=== PATIENT | male | born 1960 | race African-American/Black ===

== ENCOUNTER 2016-11-18 12:25 | Emergency (ER) | payer MEDICARE, MEDICAID ==
[2016-11-18] MEDS ORDERED: NS 0.9% 1000 ML* 1,000 ML IV ONE (12:36)
[2016-11-18 13:01] VITALS: BP 130/75
[2016-11-18 13:01] LABS: Hematocrit 38 % (42-52); Hemoglobin 12.9 g/dl (14.0-18.0); Mean Corpuscular HGB Conc 34 g/dl (31-36); Mean Corpuscular Hemoglobin 27 pg (27-31); Mean Corpuscular Volume 79 fL (80-94); Mean Platelet Volume 9 um3 (7.4-10.4); Red Blood Count 4.85 10^6/ul (4.0-5.4); Red Cell Distribution Width 15 % (10.5-15); White Blood Count 6.6 10^3/ul (3.5-10.8)
[2016-11-18 13:17] LABS: Albumin 3.5 g/dL (3.2-5.2); BUN/Creatinine Ratio 17.3 (8-20); C Reactive Protein 4.54 mg/L (< 5.00); Calcium 9.3 mg/dL (8.6-10.3); EGFR African American 126.3 (>60); EGFR Non-African American 98.2 (>60); Globulin 3.7 g/dL (2-4); Potassium 3.7 mmol/L (3.5-5.0); Total Bilirubin 0.8 mg/dL (0.2-1.0); Total Protein 7.2 g/dL (6.4-8.9)
[2016-11-18] MEDS ORDERED: oxyCODONE/Acetamin 5/325 MG* TAB PO ONE (13:38)
--- NOTE | 2016-11-18 14:02 | RAD ---
INDICATION: Short of breath. Cough. COMPARISON: October 10, 2016 TECHNIQUE: AP seated and lateral views were obtained. FINDINGS: Bones/Soft Tissues: There are no acute bony findings. Cardiomediastinal: The cardiomediastinal silhouette is normal. Lungs: There are no infiltrates. Pleura: There are no pleural effusions. Other: None IMPRESSION: NO ACTIVE DISEASE.
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
== END 2016-11-18 14:49 | disposition home or self-care (01) ==
LOC: ED 12:25
DX: R53.1 Weakness (principal); M54.9 Dorsalgia, unspecified; G89.29 Other chronic pain; F17.290 Nicotine dependence, other tobacco product, uncomplicated; I10 Essential (primary) hypertension
CPT/HCPCS: 36415; 71020; 80053; 83605; 83880; 84484; 85025; 85730; 86140; 86703; 87040; 93005; 96360; 99282; A9270-GY

== ENCOUNTER 2017-01-22 17:42 | Emergency (ER) | payer MEDICARE, MEDICAID ==
[2017-01-22] MEDS ORDERED: NS 0.9% 1000 ML* 1,000 ML IV SCH (18:30)
[2017-01-22] MEDS ORDERED: fentaNYL* 50 MCG/ML 2 ML VIAL (100 MCG VIAL) IV SLOW PU ONE ×2 (18:47→19:22)
[2017-01-22 18:54] LABS: Hematocrit 36 % (42-52); Hemoglobin 11.7 g/dl (14.0-18.0); Mean Corpuscular HGB Conc 32 g/dl (31-36); Mean Corpuscular Hemoglobin 26 pg (27-31); Mean Corpuscular Volume 81 fL (80-94); Mean Platelet Volume 9 um3 (7.4-10.4); Red Blood Count 4.47 10^6/ul (4.0-5.4); Red Cell Distribution Width 14 % (10.5-15); White Blood Count 5.7 10^3/ul (3.5-10.8)
[2017-01-22 19:10] LABS: Albumin 3.5 g/dL (3.2-5.2); C Reactive Protein 5.97 mg/L (< 5.00); Calcium 9.1 mg/dL (8.6-10.3); EGFR African American 107.7 (>60); EGFR Non-African American 83.7 (>60); Globulin 3.8 g/dL (2-4); Magnesium 1.8 mg/dL (1.9-2.7); Total Bilirubin 0.4 mg/dL (0.2-1.0); Total Protein 7.3 g/dL (6.4-8.9)
[2017-01-22] MEDS ORDERED: Iohexol 300* (CONTRAST) 10 ML SDV IV ONE (19:15)
--- NOTE | 2017-01-22 19:55 | RAD ---
Indication: Fall, head injury. CT of the head was performed without IV contrast. Ventricular structures are midline. No midline shift is noted. The extra-axial spaces are unremarkable. There is no evidence of intracranial mass or hemorrhage. No other high or low density lesions are identified. The orbits and paranasal sinuses are otherwise unremarkable. IMPRESSION: There is no evidence of intracranial mass or hemorrhage present. No changes noted since previous exam of September 21, 2009.
--- NOTE | 2017-01-22 19:58 | RAD ---
Indication: Neck injury. CT of the cervical spine was obtained in the axial plane. Sagittal and coronal reconstructed images were obtained. The skull base demonstrates no fracture. Mastoid air cells are well aerated. The C1 ring is intact. There is spina bifida occulta of the C1 ring. The remainder of the vertebral bodies appear normal in height. No evidence of fracture is noted. The spinous processes are unremarkable. There is disc space narrowing at C3-C4, C5-C6 and C6-C7 with mild osteophyte formation at C5-C6 and C6-C7. Spinal canal appears to be intact. No fracture is identified. IMPRESSION: Degenerative disc disease at C3-C4, C5-C6 and C6-C7. No fracture of the cervical spine is noted.
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
[2017-01-22] MEDS ORDERED: LORazepam INJ* 2 MG/ML 1 ML VIAL IV PUSH ONE (20:08)
[2017-01-22] MEDS ORDERED: Morphine INJ* 4 MG/ML 1 ML SYRINGE IV ONE (20:08)
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
--- NOTE | 2017-01-22 20:19 | RAD ---
Indication: Back injury. CT of the lumbar spine was obtained in the axial plane. Sagittal and coronal reconstructed images were obtained. Postoperative changes are noted from L3 to S1. Patient is status post laminectomy with fusion of the L3-L4 and L4-L5. No compression fracture is noted. The spinous processes are unremarkable. Evaluation of the spinal canal is limited. IMPRESSION: Postoperative changes at L3-L4 and L4-L5 status post laminectomy. No fracture is noted.
--- NOTE | 2017-01-22 20:21 | RAD ---
Indication: Back injury. CT of the thoracic spine was obtained in the axial plane. Sagittal and coronal reconstructed images were obtained. The thoracic vertebra demonstrates no evidence of compression fracture. Spinal canal appears to be intact. No evidence of rib fracture is noted. Spinal canal appears to be intact. IMPRESSION: No fracture of the thoracic spine is noted.
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
[2017-01-22] MEDS ORDERED: fentaNYL PATCHs 100 MCG/HR TRANSDERM SCH (21:00)
[2017-01-22 22:37] VITALS: BP 96/66
[2017-01-23] MEDS ORDERED: fentaNYL Patch Check Q Shift 1 NOTE SCH (07:00)
== END 2017-01-22 22:35 | disposition home or self-care (01) ==
LOC: ED 17:42
DX: T14.8 Other injury of unspecified body region (principal); M54.9 Dorsalgia, unspecified; F17.210 Nicotine dependence, cigarettes, uncomplicated; W10.9XXA Fall (on) (from) unspecified stairs and steps, initial encounter; Y93.9 Activity, unspecified; Y92.89 Other specified places as the place of occurrence of the external cause
CPT/HCPCS: 36415; 70450; 70486; 71260; 72125; 72128; 72131; 74177; 80053; 82550; 82553; 83605; 83690; 83735; 84484; 85025; 85610; 85730; 86140; 96374; 99283; A9270-GY; J2060; J2270; J3010; Q9967

== ENCOUNTER 2017-02-25 13:30 | Emergency (ER) | payer MEDICARE, MEDICAID ==
[2017-02-25 13:41] VITALS: BP 129/74
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
== END 2017-02-25 14:28 | disposition left against medical advice (07) ==
LOC: ED 13:30
DX: T40.601A Poisoning by unspecified narcotics, accidental (unintentional), initial encounter (principal); F11.10 Opioid abuse, uncomplicated; M54.9 Dorsalgia, unspecified; F17.210 Nicotine dependence, cigarettes, uncomplicated; Y92.9 Unspecified place or not applicable
CPT/HCPCS: 99282

== ENCOUNTER 2017-05-04 23:22 | Emergency (ER) | payer MEDICARE, MEDICAID ==
[2017-05-05] MEDS ORDERED: Morphine INJ* 4 MG/ML 1 ML SYRINGE IV ONE (02:00)
[2017-05-05] MEDS ORDERED: NS 0.9% 1000 ML* 1,000 ML IV ONE (02:00)
[2017-05-05] MEDS ORDERED: Ondansetron INJ* 2 MG/ML VIAL IV ONE (02:00)
[2017-05-05 02:50] LABS: Hematocrit 35 % (42-52); Hemoglobin 11.3 g/dl (14.0-18.0); Mean Corpuscular HGB Conc 32 g/dl (31-36); Mean Corpuscular Hemoglobin 26 pg (27-31); Mean Corpuscular Volume 81 fL (80-94); Mean Platelet Volume 9 um3 (7.4-10.4); Red Blood Count 4.33 10^6/ul (4.0-5.4); Red Cell Distribution Width 14 % (10.5-15); White Blood Count 7.3 10^3/ul (3.5-10.8)
[2017-05-05 03:00] LABS: Albumin 3.3 g/dL (3.2-5.2); BUN/Creatinine Ratio 20.7 (8-20); C Reactive Protein 10.13 mg/L (< 5.00); Calcium 9.2 mg/dL (8.6-10.3); EGFR African American 124.5 (>60); EGFR Non-African American 96.8 (>60); Globulin 4.2 g/dL (2-4); Potassium 3.9 mmol/L (3.5-5.0); Total Bilirubin 0.4 mg/dL (0.2-1.0); Total Protein 7.5 g/dL (6.4-8.9)
[2017-05-05] MEDS ORDERED: Iohexol 300* (CONTRAST) 10 ML SDV IV ONE (04:38)
[2017-05-05 07:13] VITALS: BP 97/65
--- NOTE | 2017-05-05 07:17 | RAD ---
INDICATION: Right lower quadrant pain COMPARISON: CT chest/abdomen/pelvis January 22, 2017 TECHNIQUE: Axial source images were obtained from the hemidiaphragms to the symphysis pubis following administration of oral and intravenous contrast. 101 mL Omnipaque 300 was utilized. Coronal and sagittal reconstructed images were acquired. Lung bases: Mild gravity dependent atelectasis and interstitial prominence. Suggest follow-up chest x-ray if clinically indicated. Liver: The liver is enlarged with findings of hepatic steatosis. There are no masses. There is no ductal dilatation. There is periportal edema. Gallbladder: The gallbladder is contracted. The wall is thickened. There is pericholecystic fluid. There are no calcified gallstones Spleen: The spleen is mildly generous in size. There are no focal masses Pancreas: Limited evaluation. No gross abnormalities. Adrenal glands: There is no evidence of adrenal mass. Kidneys: The kidneys are normal in size and position. There are prompt nephrograms and there is prompt excretion bilaterally. There is a 2.2 cm left renal cyst. There is no evidence of nephrolithiasis. Adenopathy: There is no evidence of adenopathy by size criteria. Evaluation for adenopathy, her, is limited due to a paucity of fat planes and mesenteric edema Fluid collections: Diffuse mesenteric edema. Vessels:There are no significant atherosclerotic changes involving the aorta. There is no focal aneurysm. The iliac vessels are normal in caliber. The IVC appears normal. GI tract: There are no acute CT bowel findings. There is no obstruction. The stomach and small bowel appear normal. The lower GI tract is remarkable for moderate retained stool. Pelvic organs: The prostate and seminal vesicles appear normal Bladder: There are no bladder masses. Abdominal and pelvic soft tissues: Mild diffuse obtaining is edema. Osseous structures: Posterior lumbar fusion L3-L5 with decompression. No acute bony change Other: None IMPRESSION: 1. Hepatic steatosis. Hepatomegaly. Periportal edema. Suggest relation with liver enzymes. 2. Pericholecystic fluid with contracted gallbladder. 3. Mild splenomegaly. 4. Mild diffuse mesenteric and subcutaneous edema 5. Moderate retained stool 6. Postoperative lumbar fusion.
[2017-05-05 08:55] LABS: Urine Bilirubin Negative (Negative); Urine Glucose Negative (Negative); Urine Nitrite Negative (Negative)
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
== END 2017-05-05 09:14 | disposition home or self-care (01) ==
LOC: ED 23:22
DX: R10.31 Right lower quadrant pain (principal); R39.198 Other difficulties with micturition; K82.0 Obstruction of gallbladder; R16.1 Splenomegaly, not elsewhere classified; K59.00 Constipation, unspecified; I10 Essential (primary) hypertension; F17.210 Nicotine dependence, cigarettes, uncomplicated
CPT/HCPCS: 36415; 74177; 80053; 81003; 83690; 85025; 86140; 96361; 96374; 96375; 99282; J2270; J2405; Q9967

== ENCOUNTER 2017-05-05 18:00 | Emergency (ER) | payer MEDICARE, MEDICAID ==
[2017-05-05] MEDS ORDERED: Naproxen TAB* 250 MG PO ONE (21:08)
[2017-05-05] MEDS ORDERED: Ciprofloxacin TAB* 500 MG PO ONE (21:08)
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
[2017-05-05 21:42] VITALS: BP 116/62
== END 2017-05-05 21:42 | disposition home or self-care (01) ==
LOC: ED 18:00
DX: R10.31 Right lower quadrant pain (principal); N41.9 Inflammatory disease of prostate, unspecified; M54.5 Low back pain; R30.0 Dysuria; R50.9 Fever, unspecified; K59.00 Constipation, unspecified; I10 Essential (primary) hypertension; F31.9 Bipolar disorder, unspecified; F17.210 Nicotine dependence, cigarettes, uncomplicated
CPT/HCPCS: 99282; A9270-GY

== ENCOUNTER 2017-10-06 01:17 | Emergency (ER) | payer MEDICARE, MEDICAID ==
[2017-10-06] MEDS ORDERED: NS 0.9% 1000 ML* 1,000 ML IV ONE (04:44)
[2017-10-06] MEDS ORDERED: Ondansetron INJ* 2 MG/ML VIAL IV ONE (04:45)
[2017-10-06 05:55] LABS: Hematocrit 35 % (42-52); Hemoglobin 11.8 g/dl (14.0-18.0); Mean Corpuscular HGB Conc 34 g/dl (31-36); Mean Corpuscular Hemoglobin 27 pg (27-31); Mean Corpuscular Volume 78 fL (80-94); Mean Platelet Volume 9 um3 (7.4-10.4); Red Blood Count 4.46 10^6/ul (4.0-5.4); Red Cell Distribution Width 14 % (10.5-15); White Blood Count 18.6 10^3/ul (3.5-10.8)
[2017-10-06 05:56] LABS: Add Diff/Slide Review? Slide Review Added; Comments Flag Yes
[2017-10-06 06:11] LABS: Albumin 3.9 g/dL (3.2-5.2); BUN/Creatinine Ratio 26.1 (8-20); EGFR African American 114.4 (>60); EGFR Non-African American 88.9 (>60); Globulin 4.6 g/dL (2-4); Potassium 4.4 mmol/L (3.5-5.0); Total Bilirubin 0.8 mg/dL (0.2-1.0); Total Protein 8.5 g/dL (6.4-8.9)
[2017-10-06] MEDS ORDERED: cefTRIAXone(*) 1 GM in NS 0.9% 50 ML* 50 ML IVPB ONE (06:21)
[2017-10-06 06:54] VITALS: BP 127/61
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
== END 2017-10-06 06:58 | disposition home or self-care (01) ==
LOC: ED 01:17
DX: L03.90 Cellulitis, unspecified (principal); R50.9 Fever, unspecified; H53.8 Other visual disturbances; R51 Headache; F41.9 Anxiety disorder, unspecified; F17.210 Nicotine dependence, cigarettes, uncomplicated
CPT/HCPCS: 36415; 80053; 83605; 85025; 87040; 96374; 96375; 99283; J0696; J2405

== ENCOUNTER 2018-11-06 23:49 | Emergency (ER) | payer MEDICARE ==
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
[2018-11-07 03:06] VITALS: BP 126/59
== END 2018-11-07 03:05 | disposition home or self-care (01) ==
LOC: ED 23:49
DX: M17.11 Unilateral primary osteoarthritis, right knee (principal); Z87.891 Personal history of nicotine dependence
CPT/HCPCS: 99281

== ENCOUNTER 2018-11-13 23:18 | Emergency (ER) | payer MEDICARE, MEDICAID ==
[2018-11-14] MEDS ORDERED: Sulfamethox/Trimethoprim DS 800/160* TAB PO ONE (00:49)
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
[2018-11-14 03:32] VITALS: BP 143/79
== END 2018-11-14 01:10 | disposition home or self-care (01) ==
LOC: ED 23:18
DX: L02.414 Cutaneous abscess of left upper limb (principal); Z86.14 Personal history of Methicillin resistant Staphylococcus aureus infection; Z87.891 Personal history of nicotine dependence
CPT/HCPCS: 10060; 87070; 87205; 99282; A9270-GY

== ENCOUNTER 2019-04-13 21:53 | Emergency (ER) | payer MEDICARE, MEDICAID ==
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
[2019-04-14 00:15] VITALS: BP 126/81
== END 2019-04-14 00:14 | disposition home or self-care (01) ==
LOC: ED 21:53
DX: K40.90 Unilateral inguinal hernia, without obstruction or gangrene, not specified as recurrent (principal); Z87.891 Personal history of nicotine dependence
CPT/HCPCS: 99282

== ENCOUNTER 2019-05-12 23:54 | Emergency (ER) | payer MEDICARE, MEDICAID ==
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
[2019-05-13] MEDS ORDERED: NS 0.9% 1000 ML** 1,000 ML IV ONE (00:09)
[2019-05-13 00:28] LABS: ABS Basophils 0.1 10^3/ul (0-0.2); ABS Eosinophils 0.2 10^3/ul (0-0.6); ABS Neutrophils 3.5 10^3/ul (1.5-7.7); Eosinophil % 2.5 %; Hematocrit 36 % (42-52); Hemoglobin 11.9 g/dL (14.0-18.0); Lymphocyte % 30.2 %; Mean Corpuscular HGB Conc 33 g/dL (31-36); Mean Corpuscular Hemoglobin 26 pg (27-31); Mean Corpuscular Volume 78 fL (80-94); Platelet Count 131 10^3/uL (150-450); Red Blood Count 4.63 10^6 /uL (4.18-5.48); Red Cell Distribution Width 15 % (10-15); White Blood Count 6.7 10^3/uL (3.5-10.8)
[2019-05-13 00:45] LABS: ALT 20 U/L (7-52); AST 32 U/L (13-39); Albumin 3.6 g/dL (3.2-5.2); Albumin/Globulin Ratio 0.9 (1-3); Alkaline Phosphatase 98 U/L (34-104); Anion Gap 5 mmol/L (2-11); BUN/Creatinine Ratio 15.9 (8-20); Blood Urea Nitrogen 14 mg/dL (6-24); CO2 Carbon Dioxide 29 mmol/L (22-32); Calcium 9.2 mg/dL (8.6-10.3); Chloride 106 mmol/L (101-111); EGFR African American 107.3 (>60); EGFR Non-African American 88.6 (>60); Globulin 3.8 g/dL (2-4); Glucose 131 mg/dL (70-100); Potassium 3.6 mmol/L (3.5-5.0); Sodium 140 mmol/L (135-145); Total Protein 7.4 g/dL (6.4-8.9)
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
[2019-05-13 01:14] LABS: Alcohol < 10 mg/dL (<10)
[2019-05-13] MEDS ORDERED: Iohexol 300* (CONTRAST) 10 ML SDV IV ONE (02:21)
[2019-05-13] MEDS ORDERED: Ibuprofen TAB* 400 MG PO ONE (02:24)
[2019-05-13 04:02] VITALS: BP 118/69
== END 2019-05-13 04:47 | disposition home or self-care (01) ==
LOC: ED 23:54
DX: R10.31 Right lower quadrant pain (principal); I10 Essential (primary) hypertension; Z87.891 Personal history of nicotine dependence; Z79.891 Long term (current) use of opiate analgesic
CPT/HCPCS: 36415; 74177; 80053; 80320; 83605; 83690; 85025; 96360; 99283; A9270-GY; G0480

== ENCOUNTER 2019-06-02 10:22 | Emergency (ER) | payer MEDICARE, MEDICAID ==
[2019-06-02] MEDS ORDERED: Ondansetron INJ* 2 MG/ML VIAL IV ONE (10:54)
[2019-06-02] MEDS ORDERED: Loperamide CAP* 2 MG PO ONE (10:54)
[2019-06-02] MEDS ORDERED: NS 0.9% 1000 ML** 1,000 ML IV ONE (10:54)
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
[2019-06-02] MEDS ORDERED: Ketorolac INJ* 30 MG/ML 1 ML VIAL IV ONE (10:58)
[2019-06-02] MEDS ORDERED: Lidocaine PATCH 5%* 1 PATCH TRANSDERM ONE (12:45)
[2019-06-02 14:03] VITALS: BP 113/80
[2019-06-02] MEDS ORDERED: Lidocaine Patch REMOVE* 1 NOTE MISC SCH (21:00)
== END 2019-06-02 14:02 | disposition home or self-care (01) ==
LOC: ED 10:22
DX: F11.90 Opioid use, unspecified, uncomplicated (principal); R11.2 Nausea with vomiting, unspecified; R19.7 Diarrhea, unspecified; R10.9 Unspecified abdominal pain; G89.29 Other chronic pain; M54.5 Low back pain; I10 Essential (primary) hypertension; Z87.891 Personal history of nicotine dependence
CPT/HCPCS: 96361; 96374; 96375; 99283; A9270-GY; J1885; J2405

== ENCOUNTER 2019-06-04 20:01 | Emergency (ER) | payer MEDICARE, MEDICAID ==
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
[2019-06-04 21:11] LABS: ABS Basophils 0.1 10^3/ul (0-0.2); ABS Eosinophils 0.2 10^3/ul (0-0.6); ABS Lymphocytes 2.2 10^3/ul (1.0-4.8); ABS Monocytes 1.1 10^3/ul (0-0.8); ABS Neutrophils 6.9 10^3/ul (1.5-7.7); Eosinophil % 1.7 %; Hematocrit 33 % (42-52); Hemoglobin 11.2 g/dL (14.0-18.0); Lymphocyte % 20.9 %; Mean Corpuscular HGB Conc 34 g/dL (31-36); Mean Corpuscular Hemoglobin 27 pg (27-31); Mean Corpuscular Volume 77 fL (80-94); Mean Platelet Volume 8.6 fL (7.4-10.4); Nucleated Red Blood Cells % 0.1; Platelet Count 159 10^3/uL (150-450); Red Blood Count 4.22 10^6 /uL (4.18-5.48); Red Cell Distribution Width 14 % (10-15); White Blood Count 10.4 10^3/uL (3.5-10.8)
[2019-06-04 21:20] LABS: INR 1.29 (0.82-1.09)
[2019-06-04 21:32] LABS: BUN/Creatinine Ratio 18.1 (8-20); Potassium 4.3 mmol/L (3.5-5.0)
[2019-06-04 21:33] LABS: Albumin 3.4 g/dL (3.2-5.2); Albumin/Globulin Ratio 0.8 (1-3); C Reactive Protein 8.08 mg/L (<8.01); EGFR African American 135.2 (>60); EGFR Non-African American 111.7 (>60); Globulin 4.1 g/dL (2-4); Total Bilirubin 0.7 mg/dL (0.2-1.0); Total Protein 7.5 g/dL (6.4-8.9)
[2019-06-04] MEDS ORDERED: Sulfamethox/Trimethoprim DS 800/160* TAB PO ONE (21:45)
[2019-06-04 22:40] VITALS: BP 114/59
== END 2019-06-04 22:47 | disposition left against medical advice (07) ==
LOC: ED 20:01
DX: L02.414 Cutaneous abscess of left upper limb (principal); Z79.899 Other long term (current) drug therapy; I10 Essential (primary) hypertension; F31.9 Bipolar disorder, unspecified; F41.9 Anxiety disorder, unspecified; Z87.891 Personal history of nicotine dependence
CPT/HCPCS: 10060; 36415; 80053; 85025; 85610; 86140; 87070; 87077; 87186; 87205; 87640; 87641; 99282; A9270-GY

== ENCOUNTER 2019-06-09 03:18 | Emergency (ER) | payer MEDICARE, MEDICAID ==
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
[2019-06-09 05:10] LABS: Urine Appearance Clear; Urine Bilirubin Negative (Negative); Urine Blood Negative (Negative); Urine Color Yellow; Urine Glucose Negative (Negative); Urine Ketones Negative (Negative); Urine Nitrite Negative (Negative); Urine Protein Negative (Negative); Urine Specific Gravity 1.021 (1.010-1.030); Urine Urobilinogen Positive (Negative)
[2019-06-09 05:40] VITALS: BP 115/64
== END 2019-06-09 05:39 | disposition home or self-care (01) ==
LOC: ED 03:18
DX: K40.90 Unilateral inguinal hernia, without obstruction or gangrene, not specified as recurrent (principal); I10 Essential (primary) hypertension; F41.9 Anxiety disorder, unspecified; F32.9 Major depressive disorder, single episode, unspecified; Z87.891 Personal history of nicotine dependence
CPT/HCPCS: 81003; 99282

== ENCOUNTER 2019-12-25 15:58 | Emergency (ER) | payer MEDICARE, MEDICAID ==
[2019-12-25] MEDS ORDERED: NS 0.9% 1000 ML** 1,000 ML IV ONE ×2 (16:10→16:40)
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
[2019-12-25] MEDS ORDERED: Ketorolac INJ* 30 MG/ML 1 ML VIAL IV PUSH ONE (16:20)
[2019-12-25] MEDS ORDERED: Acetaminophen TAB* 325 MG PO ONE (16:20)
[2019-12-25] MEDS ORDERED: cefTRIAXone(*) 1 GM in NS 0.9% 50 ML* 50 ML IVPB ONE (16:39)
[2019-12-25] MEDS ORDERED: Azithromycin 500 mg/250 ml NS 500 MG/250 ML BAG IVPB ONE (16:39)
[2019-12-25 16:42] LABS: ABS Basophils 0.1 10^3/ul (0-0.2); ABS Lymphocytes 1.1 10^3/ul (1.0-4.8); ABS Monocytes 0.9 10^3/ul (0-0.8); ABS Neutrophils 3.4 10^3/ul (1.5-7.7); Eosinophil % 0.1 %; Hematocrit 37 % (42-52); Hemoglobin 12.4 g/dL (14.0-18.0); Lymphocyte % 20.7 %; Mean Corpuscular HGB Conc 34 g/dL (31-36); Mean Corpuscular Hemoglobin 26 pg (27-31); Mean Corpuscular Volume 77 fL (80-94); Mean Platelet Volume 8.8 fL (7.4-10.4); Nucleated Red Blood Cells % 0.2; Platelet Count 123 10^3/uL (150-450); Red Blood Count 4.77 10^6 /uL (4.18-5.48); Red Cell Distribution Width 14 % (10-15); White Blood Count 5.5 10^3/uL (3.5-10.8)
[2019-12-25 16:44] LABS: Influenza A Molecular POSITIVE (Negative)
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
--- OUTSIDE RECORDS SUMMARY | 2019-12-25 16:45 | XMS REPORT | Summary of Care ---
:1960 Author Organization [facility] Address [address] [address] Care Team Providers Name Role Phone Nazanin Cui Primary Care Provider Reason for Visit Reason Comments Check Up lower back pain and swollen extremities Encounter Details Date Type Department Care Team Description 12/21/2019 Office Visit [place] [facility] Pain management contract agreement (Primary Dx); Practice [facility] Chronic pain disorder [address] [place] [address] [place] [address] [phone] Allergies No Known Allergiesdocumented as of this encounter (statuses as of 12/21/2019) Medications Medication Sig Dispensed Refills Start Date End Date Status Tamsulosin HCl TAKE 1 90 Cap 1 02/09/2019 Active (FLOMAX) 0.4 MG CAPSULE BY Oral MOUTH EVERY CapIndications: DAY Urinary obstruction gabapentin Take 1 Cap by 60 Cap 3 11/16/2019 Active (NEURONTIN) 400 mouth THREE MG Oral TIMES DAILY. CapIndications: Chronic pain disorder oxyCODONE Take 1 Tab by 4 Tab 0 12/21/2019 Active (OXY-IR,OXY-FAST) mouth EVERY 10 MG Oral SIX HOURS TabIndications: NEEDED (back Chronic pain pain). Max disorder Daily Amount: 20 mg. Oxycodone HCl 10 Take 1 Tab by 60 Tab 0 11/16/2019 Discontinued MG Oral mouth EVERY 0 (Reorder) TabIndications: SIX HOURS Chronic pain NEEDED (back disorder pain). Max Daily Amount: 20 mg. documented as of this encounter (statuses as of 12/21/2019) Active Problems Problem Noted Date Cervicalgia 07/30/2019 [...] as of this encounter (statuses as of 12/21/2019) Social History Tobacco Use Types Packs/Day Years [...] Sign Reading Time Taken Comments Blood Pressure 140/78 12/21/2019 10:45 AM EST Pulse 69 12/21/2019 10:45 AM EST Temperature 37.7 12/21/2019 10:45 AM EST C (99.9 F) Respiratory Rate - - Oxygen Saturation 99% 12/21/2019 10:45 AM EST Inhaled Oxygen Concentration - - Weight 77.6 kg (171 lb) 12/21/2019 10:45 AM EST Height 182.9 cm (6') 12/21/2019 10:45 AM EST Body Mass Index 23.19 12/21/2019 10:45 AM EST documented in this encounter Patient Instructions Patient InstructionsLizzie Carranza NP - 12/21/2019 10:40 AM SHANTHI have sent in enough oxycodone for today and tomorrow. For further refills you must keep your appointment with Dr. Cui tomorrow at 4pm. documented in this encounter Progress Notes Lizzie Carranza NP - 12/21/2019 10:40 AM EST PATIENT: Chris Ramirez : 1960 DATE OF SERVICE: 12/21/2019 CHIEF COMPLAINT: Chief Complaint Patient presents with ? Check Up lower back pain and swollen extremities Subjective HISTORY OF PRESENT ILLNESS: Chris Ramirez is a 59-y.o. male. HPI He missed appointment with Dr. Cui on 12/09/19. Would like refill of his oxycodone for chronic lowback pain. He normally gets 60 tablets and take 2 tablets daily. He has had 4 surgeries on his back and getting another surgery next month. He sees Dr. Trino Pete neurosurgery/orthopedics. He told him that 2 screws in bridge came loose since last surgery. Left side chronically numb. No bowel or bladder incontinence. Past Medical History: Diagnosis Date ? Bipolar affect, depressed (HCC) ? Clinical depression ? Schizo-affective schizophrenia (HCC) Family History Problem Relation Age of Onset [...] Sister ? Depression/Depressed Brother ? Diabetes Brother Current Outpatient Medications Medication Sig ? gabapentin [...] No current facility-administered medications for this visit. No Known Allergies Social History Socioeconomic History ? Marital status: Spouse name: Not on file ? Number of children: Not on file ? Years of education: Not on file ? Highest education level: Not on file Occupational History ? Not on file Social Needs ? Financial resource strain: Not on file ? Food insecurity Worry: Not on file Inability: Not on file ? Transportation needs Medical: Not on file Non-medical: Not on file Tobacco Use ? Smoking status: Current Every Day Smoker Types: Cigarettes ? Smokeless tobacco: Never Used ? Tobacco comment: 2 cigs per day Substance and Sexual Activity ? Alcohol use: Never Frequency: Never ? Drug use: Yes Types: Prescription ? Sexual activity: Yes Partners: Female Lifestyle ? Physical activity Days per week: Not on file Minutes per session: Not on file ? Stress: Not on file Relationships ? Social connections Talks on phone: Not on file Gets together: Not on file Attends zoroastrian service: Not on file Active member of club or organization: Not on file Attends meetings of clubs or organizations: Not on file Relationship status: Not on file ? Intimate partner violence Fear of current or ex partner: Not on file Emotionally abused: Not on file Physically abused: Not on file Forced sexual activity: Not on file Other Topics Concern ? Not on file Social History Narrative ? Not on file REVIEW OF SYSTEMS: Review of Systems Gastrointestinal: Negative for constipation and diarrhea. Genitourinary: Negative for dysuria, frequency and urgency. Musculoskeletal: Positive for back pain. Neurological: Positive for tingling and sensory change. Negative for weakness. Objective PHYSICAL EXAM: VITALS: BP 140/78 (BP Location: Right arm, Patient Position: Sitting) | Pulse 69 | Temp 99.9 F (37.7 C) (Tympanic) | Ht 6' (1.829 m) | Wt 171 lb ( 77.6 kg) | SpO2 99% | BMI 23.19 kg/m Body mass index is 23.19 kg/m. Physical Exam Vitals signs and nursing note reviewed. Constitutional: General: He is not in acute distress. Appearance: Normal appearance. He is well-developed. Cardiovascular: Rate and Rhythm: Normal rate and regular rhythm. Heart sounds: Normal heart sounds. No murmur. No friction rub. No gallop. Pulmonary: Effort: Pulmonary effort is normal. No respiratory distress. Breath sounds: Normal breath sounds. Neurological: Mental Status: He is alert. Psychiatric: Mood and Affect: Mood and affect normal. Speech: Speech normal. Behavior: Behavior normal. Behavior is cooperative. ASSESSMENT / IMPRESSION: ICD-9-CM ICD-10-CM 1. Pain management contract agreement V68.89 Z02.89 2. Chronic pain disorder 338.4 G89.4 oxyCODONE (OXY-IR,OXY-FAST) 10 MG Oral Tab Plan 1. Chronic pain disorder -scheduled with Dr. Cui tomorrow at 4 pm - I will give him enough to last until then but will need to keep this appointment to get further refills. - oxyCODONE (OXY-IR,OXY-FAST) 10 MG Oral Tab; Take 1 Tab by mouth EVERY SIX HOURS NEEDED (back pain). Max Daily Amount: 20 mg. Dispense: 4 Tab; Refill: 0 2. Pain management contract agreement -In place, and can be found in scanning. Author: Lizzie Carranza NP 12/21/2019 12:14 documented in this encounter Plan of Treatment Date Type Specialty Care Team Description 12/22/2019 Office Visit Internal Medicine Nazanin Cui MD [address] [place] [address] [phone] 01/15/2020 Office Visit Internal Medicine Nazanin Cui MD [address] [place] [address] [phone] Health Maintenance Due Date Last Done Comments MEDICARE ANNUAL WELLNESS 1960 VISIT LIPID DISORDER SCREENING 1977 HEPATITIS C SCREENING 1999 Colonoscopy 2009 DTaP/Tdap/Td Vaccines (1 - 01/13/2020 Postponed from 1970 Tdap) (Other) INFLUENZA VACCINE (#1) 2020 Postponed from 07/05/2019 (Other) DEPRESSION SCREENING 09/18/2020 09/18/2019, 09/18/2019 HIV SCREENING 09/18/2020 Postponed from 1974 (Patient refused) PNEUMOCOCCAL 0-64 YRS (1 of 1 09/18/2020 Postponed from 1965 - PPSV23) (Patient refused) ZOSTER IMMUNIZATION SERIES (1 09/18/2020 Postponed from 2009 of 2) (Vaccine not available) HEPATITIS A IMMUNIZATION Aged Out No longer [...] Type Problems Progress Depression Depression 9 (09/18/2019 venecia Self (PHQ-9) 1:32 PM EST) MD Nazanin total [...] Diagnosis Chronic pain disorder Chronic pain syndrome Pain management contract agreement Reserved for inherently not codable concepts WITHOUT codable children documented in this encounter documented as of this encounter
[2019-12-25 16:55] LABS: Albumin 3.7 g/dL (3.2-5.2); Albumin/Globulin Ratio 0.9 (1-3); Calcium 8.9 mg/dL (8.6-10.3); EGFR African American 114.4 (>60); EGFR Non-African American 94.5 (>60); Globulin 4.2 g/dL (2-4); Total Bilirubin 0.6 mg/dL (0.2-1.0); Total Protein 7.9 g/dL (6.4-8.9)
[2019-12-25 18:02] LABS: Urine Appearance Clear; Urine Bilirubin Negative (Negative); Urine Blood Negative (Negative); Urine Color Yellow; Urine Glucose Negative (Negative); Urine Ketones Negative (Negative); Urine Nitrite Negative (Negative); Urine Protein Negative (Negative); Urine Specific Gravity 1.016 (1.010-1.030); Urine Urobilinogen Positive (Negative)
[2019-12-25 18:54] VITALS: BP 129/80
--- NOTE | 2019-12-26 10:31 | ED ---
Imaging and Labs Follow Up Follow Up Type: Labs/Cultures Labs/Culture Result: Positive blood cultures reveals gram positive bacilli, non-anthracis Patient Communication/Plan: Patient was called multiple times as well as patient's sister, next of kin which is listed as secondary phone number Patient's line was busy and sisters line, unable to complete the call as patient has calling restrictions Patient Communication/Plan: While this could be a contaminant, patient was called back multiple times with no answer, so letter was sent Provider Diagnoses: Pneumonia, Influenza A
== END 2019-12-25 19:31 | disposition home or self-care (01) ==
LOC: ED 15:58
DX: J09.X2 Influenza due to identified novel influenza A virus with other respiratory manifestations (principal); J18.9 Pneumonia, unspecified organism; I10 Essential (primary) hypertension; F41.9 Anxiety disorder, unspecified; F31.9 Bipolar disorder, unspecified; Z87.891 Personal history of nicotine dependence; Z79.899 Other long term (current) drug therapy
CPT/HCPCS: 36415; 71046; 80053; 81003; 83605; 85025; 87040; 87205; 96365; 96375; 99283; A9270-GY; J0456; J0696; J1885

== ENCOUNTER 2020-08-13 20:38 | Inpatient (IN) ==
[2020-08-13] MEDS ORDERED: NS 0.9% 1000 ml BAG 1,000 ML IV.FLUID IV ONE (21:25)
[2020-08-13] MEDS ORDERED: Piperacillin/Tazobac ADVAN 3.375 GM in NS 0.9% 100 ml BAG 100 ML IVPB ONE (21:25)
[2020-08-13] MEDS ORDERED: Ondansetron 4 mg VIAL 2 MG/ML 2 ml VIAL IV ONE (21:27)
[2020-08-13 21:48] LABS: ABS Basophils 0.1 10^3/ul (0-0.2); ABS Lymphocytes 0.9 10^3/ul (1.0-4.8); ABS Monocytes 0.8 10^3/ul (0-0.8); ABS Neutrophils 11.3 10^3/ul (1.5-7.7); Eosinophil % 0.4 %; Hematocrit 39 % (42-52); Lymphocyte % 6.7 %; Mean Corpuscular HGB Conc 33 g/dL (31-36); Mean Corpuscular Hemoglobin 26 pg (27-31); Mean Corpuscular Volume 79 fL (80-94); Mean Platelet Volume 9.3 fL (7.4-10.4); Platelet Count 179 10^3/uL (150-450); Red Blood Count 4.95 10^6 /uL (4.18-5.48); Red Cell Distribution Width 13 % (10-15); White Blood Count 13.2 10^3/uL (3.5-10.8)
[2020-08-13 21:56] LABS: Activated Partial Thrombo Time 31.9 seconds (26.0-38.0); INR 1.39 (0.82-1.09)
[2020-08-13] MEDS ORDERED: Vancomycin 1,500 MG in NS 0.9% 250 ml 250 ML IVPB SCH (22:00)
[2020-08-13 22:05] LABS: ALT 21 U/L (7-52); AST 28 U/L (13-39); Albumin 3.6 g/dL (3.2-5.2); Albumin/Globulin Ratio 0.7 (1-3); Alkaline Phosphatase 94 U/L (34-104); Anion Gap 7 mmol/L (2-11); BUN/Creatinine Ratio 12.9 (8-20); Blood Urea Nitrogen 11 mg/dL (6-24); C Reactive Protein 3.61 mg/L (<8.01); CO2 Carbon Dioxide 28 mmol/L (22-32); Calcium 9.4 mg/dL (8.6-10.3); Chloride 98 mmol/L (101-111); EGFR African American 110.9 (>60); EGFR Non-African American 91.6 (>60); Globulin 5.1 g/dL (2-4); Glucose 144 mg/dL (70-100); Sodium 133 mmol/L (135-145); Total Protein 8.7 g/dL (6.4-8.9)
[2020-08-13] MEDS ORDERED: Iohexol 300 (CONTRAST) 10 ML SDV IV ONE (22:08)
[2020-08-13 22:30] LABS: Troponin I 0.03 ng/mL (<0.03)
[2020-08-13 22:55] LABS: Erythrocyte Sed Rate 35 mm/Hr (0-19)
[2020-08-14] MEDS ORDERED: Ondansetron 4 mg VIAL 2 MG/ML 2 ml VIAL IV PRN (00:33)
[2020-08-14] MEDS ORDERED: NS 0.9% 1000 ml BAG 1,000 ML IV SCH (00:45)
[2020-08-14] MEDS ORDERED: Vancomycin per Pharmacy 1 EA NOTE FOLLOW UP SCH (01:00)
[2020-08-14 02:02] LABS: Total Iron Binding Capacity 336 mcg/dL (250-450); Transferrin 240 mg/dL (203-362)
[2020-08-14 02:04] LABS: Troponin I 0.03 ng/mL (<0.03)
[2020-08-14 02:25] LABS: Ferritin 111.6 ng/mL (24-336)
[2020-08-14 02:28] LABS: Folate 14.02 ng/mL (>3.99)
[2020-08-14 02:29] LABS: Vitamin B12 485 pg/mL (180-914)
[2020-08-14] MEDS ORDERED: fentaNYL PATCH 25 MCG/HR 1 PATCH TRANSDERM SCH (02:30)
[2020-08-14 02:31] LABS: % Iron Saturation 6 % (15-55); Iron < 20 ug/dL (50-212); Unsaturated Iron Binding < 321 ug/dL
[2020-08-14 02:38] LABS: HIV 4th Generation Nonreactive (Nonreactive)
[2020-08-14] MEDS: metroNIDAZOLE IV 500 MG/100ML 500 MG/100 ML BAG IVPB SCH ×3 (03:12→23:14)
[2020-08-14] MEDS: Cefepime 2 GM in Dextrose 2 GM/50 ML BAG IV SCH ×2 (05:20→21:33)
[2020-08-14] MEDS: Vancomycin 1,250 MG in NS 0.9% 250 ml 250 ML IVPB SCH ×2 (06:00→14:13)
[2020-08-14] MEDS: Heparin 5000 UNITS/ML 1 mL VIAL SUBCUT SCH ×2 (06:03→14:18)
[2020-08-14] MEDS: fentaNYL Patch Check Q Shift NOTE FOLLOW UP SCH ×2 (06:58→19:31)
[2020-08-14 08:11] LABS: Urine Appearance Cloudy; Urine Bilirubin Negative (Negative); Urine Blood Negative (Negative); Urine Color Amber; Urine Glucose Negative (Negative); Urine Ketones Negative (Negative); Urine Nitrite Negative (Negative); Urine Protein Negative (Negative); Urine Specific Gravity 1.041 (1.010-1.030); Urine Urobilinogen Positive (Negative)
[2020-08-14 08:18] LABS: Urine Bacteria Absent (Absent); Urine Red Blood Cell 3+(>10/hpf) (Absent); Urine White Blood Cell 3+(>20/hpf) (Absent)
[2020-08-14] MEDS: Iron Sucrose 200 MG in NS 0.9% 100 ml BAG 100 ML IVPB SCH (09:03)
[2020-08-14 10:07] LABS: Hepatitis C Antibody Reactive (Negative)
[2020-08-14] MEDS ORDERED: Enoxaparin 40 MG/0.4 ML SYR SUBCUT SCH (21:00)
[2020-08-15] MEDS: Vancomycin 1,250 MG in NS 0.9% 250 ml 250 ML IVPB SCH ×3 (00:37→11:20)
[2020-08-15] MEDS ORDERED: Vancomycin Trough Check NOTE FOLLOW UP ONE (05:30)
[2020-08-15] MEDS: fentaNYL Patch Check Q Shift NOTE FOLLOW UP SCH (07:08)
[2020-08-15] MEDS: metroNIDAZOLE IV 500 MG/100ML 500 MG/100 ML BAG IVPB SCH ×2 (07:09→15:04)
[2020-08-15] MEDS: Iron Sucrose 200 MG in NS 0.9% 100 ml BAG 100 ML IVPB SCH (08:56)
[2020-08-15] MEDS ORDERED: Vancomycin 1,250 MG in NS 0.9% 250 ml 250 ML IVPB SCH (09:00)
[2020-08-15] MEDS ORDERED: Cefepime 2 GM in Dextrose 2 GM/50 ML BAG IV SCH (10:00)
[2020-08-15 10:28] LABS: ALT 17 U/L (7-52); Albumin 3.3 g/dL (3.2-5.2); Albumin/Globulin Ratio 0.8 (1-3); Alkaline Phosphatase 73 U/L (34-104); BUN/Creatinine Ratio 9.7 (8-20); Blood Urea Nitrogen 7 mg/dL (6-24); CO2 Carbon Dioxide 25 mmol/L (22-32); Calcium 8.8 mg/dL (8.6-10.3); Chloride 102 mmol/L (101-111); EGFR African American 134.3 (>60); Globulin 4.4 g/dL (2-4); Glucose 177 mg/dL (70-100); Sodium 131 mmol/L (135-145); Total Protein 7.7 g/dL (6.4-8.9)
[2020-08-15 11:26] VITALS: BP 162/73
[2020-08-15] MEDS ORDERED: fentaNYL PATCH 25 MCG/HR 1 PATCH TRANSDERM SCH (12:00)
[2020-08-15 12:04] LABS: Anion Gap 4 mmol/L (2-11)
[2020-08-17] MEDS ORDERED: Vancomycin Trough Check NOTE FOLLOW UP ONE (11:00)
== END 2020-08-15 16:10 | disposition left against medical advice (07) | DRG 872 ==
LOC: ED 20:38 → MED 23:34
PROVIDERS: ADMIT Internal Medicine Interventional Cardiology; ATTEND Internal Medicine

== ENCOUNTER 2020-09-11 20:01 | Inpatient (IN) ==
[2020-09-11] MEDS ORDERED: NS 0.9% 1000 ml BAG 1,000 ML IV ONE (20:18)
[2020-09-11] MEDS ORDERED: Naloxone 4 mg VIAL 0.4 MG/ML 10 ml VIAL (4 mg) ONE (20:32)
[2020-09-11] MEDS ORDERED: Naloxone Nasal Spray 4 MG/0.1 ML NASAL.SPR INTRANASAL PRN (20:35)
[2020-09-11] MEDS ORDERED: Naloxone Nasal Spray 4 MG/0.1 ML NASAL.SPR INTRANASAL ONE (20:35)
[2020-09-11] MEDS ORDERED: Naloxone 0.4 mg VIAL 0.4 mg/ml 1 ml VIAL IV PUSH ONE ×2 (20:37→21:48)
[2020-09-11 20:47] LABS: ABS Lymphocytes 0.6 10^3/ul (1.0-4.8); ABS Monocytes 0.1 10^3/ul (0-0.8); ABS Neutrophils 7.4 10^3/ul (1.5-7.7); Eosinophil % 0.5 %; Hematocrit 42 % (42-52); Hemoglobin 14.5 g/dL (14.0-18.0); Lymphocyte % 7.1 %; Mean Corpuscular HGB Conc 35 g/dL (31-36); Mean Corpuscular Hemoglobin 27 pg (27-31); Mean Corpuscular Volume 79 fL (80-94); Mean Platelet Volume 8.7 fL (7.4-10.4); Platelet Count 139 10^3/uL (150-450); Red Blood Count 5.36 10^6 /uL (4.18-5.48); Red Cell Distribution Width 14 % (10-15); White Blood Count 8.1 10^3/uL (3.5-10.8)
[2020-09-11 21:04] LABS: ALT 23 U/L (7-52); Albumin 3.5 g/dL (3.2-5.2); Albumin/Globulin Ratio 0.9 (1-3); Alkaline Phosphatase 155 U/L (34-104); BUN/Creatinine Ratio 11.5 (8-20); Blood Urea Nitrogen 11 mg/dL (6-24); CO2 Carbon Dioxide 23 mmol/L (22-32); Calcium 9.4 mg/dL (8.6-10.3); Chloride 102 mmol/L (101-111); Creatine Kinase 41 U/L (10-223); EGFR African American 96.4 (>60); EGFR Non-African American 79.6 (>60); Globulin 4.1 g/dL (2-4); Glucose 128 mg/dL (70-100); Sodium 135 mmol/L (135-145); Total Protein 7.6 g/dL (6.4-8.9)
[2020-09-11 21:12] LABS: Anion Gap 10 mmol/L (2-11)
[2020-09-11 21:16] LABS: Troponin I 0.03 ng/mL (<0.03)
[2020-09-11 21:24] LABS: Acetaminophen < 15 mcg/mL; Alcohol, S < 10 mg/dL (<10); Salicylate < 2.50 mg/dL (<30)
[2020-09-11] MEDS ORDERED: Piperacillin/Tazobac ADVAN 3.375 GM in NS 0.9% 100 ml BAG 100 ML IVPB ONE (21:28)
[2020-09-11] MEDS ORDERED: NS 0.9% 1000 ml BAG 1,000 ML IV.FLUID IV ONE ×2 (21:28)
[2020-09-11] MEDS ORDERED: Albuterol/Ipratropium NEB.SOL (2.5/0.5 MG) 3 ML NEB.SOLN INH ONE (22:08)
[2020-09-11] MEDS ORDERED: Iohexol 350 (CONTRAST) 500 ML MDV IV ONE (22:17)
[2020-09-11 22:35] LABS: Urine Appearance Cloudy; Urine Bilirubin Negative (Negative); Urine Blood Negative (Negative); Urine Color Yellow; Urine Glucose Negative (Negative); Urine Ketones Negative (Negative); Urine Nitrite Negative (Negative); Urine Protein 1+(30 mg/dL) (Negative); Urine Specific Gravity 1.006 (1.010-1.030); Urine Urobilinogen Negative (Negative)
[2020-09-11 22:43] LABS: Urine Bacteria 1+ (Absent); Urine Red Blood Cell 2+(6-10/hpf) (Absent); Urine White Blood Cell 3+(>20/hpf) (Absent)
[2020-09-11 22:45] LABS: Activated Partial Thrombo Time 24.3 seconds (26.0-38.0)
[2020-09-11 22:50] LABS: Potassium Redraw 3.5 mmol/L (3.5-5.0)
[2020-09-11 22:52] LABS: Urine Benzodiazepine Screen None Detected (None Detect); Urine Cannabinoids Screen None Detected (None Detect); Urine Opiates Screen Presumptive Positive (None Detect)
[2020-09-12] MEDS ORDERED: Ondansetron 4 mg VIAL 2 MG/ML 2 ml VIAL IV PRN (00:32)
[2020-09-12] MEDS ORDERED: Naloxone 0.4 mg VIAL 0.4 mg/ml 1 ml VIAL IV PUSH PRN (00:45)
[2020-09-12] MEDS ORDERED: Vancomycin 1,250 MG in NS 0.9% 250 ml 250 ML IVPB ONE (01:00)
[2020-09-12] MEDS ORDERED: Zosyn per Pharmacy NOTE FOLLOW UP SCH (01:00)
[2020-09-12] MEDS ORDERED: Vancomycin per Pharmacy 1 EA NOTE FOLLOW UP SCH (01:00)
[2020-09-12] MEDS: NS 0.9% 1000 ml BAG 1,000 ML IV SCH ×3 (02:15→16:26)
[2020-09-12] MEDS: Enoxaparin 40 MG/0.4 ML SYR SUBCUT SCH (02:15)
[2020-09-12] MEDS: ZOSYN 3.375 GM Q8H per EXTENDED INFUSION IV SCH ×3 (02:18→18:27)
[2020-09-12 03:01] LABS: Troponin I 0.03 ng/mL (<0.03)
[2020-09-12 04:36] LABS: Hematocrit 36 % (42-52); Hemoglobin 12.4 g/dL (14.0-18.0); Mean Corpuscular HGB Conc 34 g/dL (31-36); Mean Corpuscular Hemoglobin 27 pg (27-31); Mean Corpuscular Volume 79 fL (80-94); Mean Platelet Volume 9.3 fL (7.4-10.4); Platelet Count 144 10^3/uL (150-450); Red Cell Distribution Width 14 % (10-15); White Blood Count 29.1 10^3/uL (3.5-10.8)
[2020-09-12 04:49] LABS: C Reactive Protein 13.62 mg/L (<8.01)
[2020-09-12 06:00] LABS: Influenza A Molecular Negative (Negative); Influenza B Molecular Negative (Negative)
[2020-09-12 06:13] LABS: ABS Basophils 0.1 10^3/ul (0-0.2); ABS Lymphocytes 0.7 10^3/ul (1.0-4.8); ABS Neutrophils 27.3 10^3/ul (1.5-7.7); Eosinophil % 0.1 %; Lymphocyte % 2.3 %
[2020-09-12] MEDS: Vancomycin 1000 MG in NS 0.9% 250 ML IVPB SCH ×2 (07:59→16:18)
[2020-09-12 08:54] LABS: Calcium 8.8 mg/dL (8.6-10.3); Potassium 3.5 mmol/L (3.5-5.0)
[2020-09-12 08:59] LABS: BUN/Creatinine Ratio 10.7 (8-20); EGFR African American 88.8 (>60); EGFR Non-African American 73.4 (>60)
[2020-09-12] MEDS ORDERED: Potassium Chlor 20 meq TAB.ER PO ONE (09:22)
[2020-09-12] MEDS ORDERED: fentaNYL PATCH 25 MCG/HR 1 PATCH TRANSDERM SCH (16:00)
[2020-09-12] MEDS: fentaNYL Patch Check Q Shift NOTE FOLLOW UP SCH (19:04)
[2020-09-13] MEDS: Vancomycin 1000 MG in NS 0.9% 250 ML IVPB SCH ×2 (00:25→10:30)
[2020-09-13] MEDS: Enoxaparin 40 MG/0.4 ML SYR SUBCUT SCH (00:26)
[2020-09-13] MEDS: ZOSYN 3.375 GM Q8H per EXTENDED INFUSION IV SCH ×2 (02:45→10:17)
[2020-09-13] MEDS: NS 0.9% 1000 ml BAG 1,000 ML IV SCH (06:11)
[2020-09-13] MEDS: fentaNYL Patch Check Q Shift NOTE FOLLOW UP SCH (06:55)
[2020-09-13] MEDS ORDERED: Vancomycin Trough Check NOTE FOLLOW UP ONE (08:30)
[2020-09-13 08:58] VITALS: BP 104/59
== END 2020-09-13 11:32 | disposition home or self-care (01) | DRG 871 ==
LOC: ED 20:01 → ICU 09-12 01:27 → MED 09-12 09:04
PROVIDERS: ADMIT Internal Medicine; ATTEND Internal Medicine

== ENCOUNTER 2022-10-15 13:23 | Inpatient (IN) ==
[2022-10-15] MEDS ORDERED: NS 0.9% 1000 ml BAG 1,000 ML IV ONE ×3 (13:28→19:13)
[2022-10-15] MEDS ORDERED: Lorazepam PYXIS KEY PRN (13:30)
[2022-10-15] MEDS ORDERED: LORazepam 2 mg VIAL 1 ml IV PUSH ONE (13:30)
[2022-10-15 14:04] LABS: ABS Basophils 0.1 10^3/ul (0-0.2); ABS Lymphocytes 1.1 10^3/ul (1.0-4.8); ABS Monocytes 0.5 10^3/ul (0-0.8); ABS Neutrophils 11.2 10^3/ul (1.5-7.7); ABS Nucleated RBC 0.1 10^3/ul; Eosinophil % 0.2 %; Hematocrit 52 % (42-52); Hemoglobin 17.3 g/dL (14.0-18.0); Lymphocyte % 8.6 %; Mean Corpuscular HGB Conc 33 g/dL (31-36); Mean Corpuscular Hemoglobin 26 pg (27-31); Mean Corpuscular Volume 78 fL (80-94); Nucleated Red Blood Cells % 0.6; Platelet Count 153 10^3/uL (150-450); Red Blood Count 6.61 10^6 /uL (4.18-5.48); Red Cell Distribution Width 14 % (10-15); White Blood Count 12.9 10^3/uL (3.5-10.8)
[2022-10-15 14:20] LABS: High Sens Troponin Baseline 16 pg/mL (<20)
[2022-10-15 14:49] LABS: TSH Ultra Thyroid Stim Horm 0.59 mcIU/mL (0.34-5.60)
[2022-10-15 15:24] LABS: High Sensitivity Troponin 1 Hr 14 pg/mL (<20)
[2022-10-15 15:29] LABS: ALT 24 U/L (7-52); Albumin 5.1 g/dL (3.2-5.2); Albumin/Globulin Ratio 0.8 (1-3); Alcohol, S < 13 mg/dL (<13); Alkaline Phosphatase 68 U/L (35-149); Anion Gap 14 mmol/L (2-11); Blood Urea Nitrogen 11 mg/dL (6-24); CO2 Carbon Dioxide 22 mmol/L (22-32); Calcium 10.1 mg/dL (8.6-10.3); Chloride 95 mmol/L (101-111); Globulin 6.1 g/dL (2-4); Glucose 144 mg/dL (70-100); Sodium 131 mmol/L (135-145); Total Protein 11.2 g/dL (6.4-8.9); eGFR CKD-EPI 100.2 (>60)
[2022-10-15] MEDS ORDERED: Piperacillin/Tazobac ADVAN 3.375 GM in NS 0.9% 100 ml BAG 100 ML IV ONE ×2 (19:57→23:13)
[2022-10-15] MEDS ORDERED: Morphine 4 MG/ML VIAL (1 ml) ONE (21:07)
[2022-10-15 21:37] LABS: PCO2 Arterial 28 mmHg (35-45); PO2 Arterial 77 mmHg (80-100)
[2022-10-15 21:41] LABS: ABS Lymphocytes 0.7 10^3/ul (1.0-4.8); ABS Monocytes 1.1 10^3/ul (0-0.8); ABS Neutrophils 14.8 10^3/ul (1.5-7.7); Eosinophil % 0.1 %; Hematocrit 42 % (42-52); Hemoglobin 13.6 g/dL (14.0-18.0); Lymphocyte % 4.3 %; Mean Corpuscular HGB Conc 32 g/dL (31-36); Mean Corpuscular Hemoglobin 26 pg (27-31); Mean Corpuscular Volume 79 fL (80-94); Mean Platelet Volume 8.8 fL (7.4-10.4); Platelet Count 140 10^3/uL (150-450); Red Blood Count 5.34 10^6 /uL (4.18-5.48); Red Cell Distribution Width 14 % (10-15); White Blood Count 16.6 10^3/uL (3.5-10.8)
[2022-10-15 21:58] LABS: Urine Benzodiazepine Screen Presumptive Positive (None Detect); Urine Cannabinoids Screen None Detected (None Detect); Urine Opiates Screen Presumptive Positive (None Detect)
[2022-10-15 22:05] LABS: Urine Appearance Slightly Cloudy; Urine Bilirubin 1+ (Small) (Negative); Urine Color Yellow; Urine Glucose Negative (Negative)
[2022-10-15 22:06] LABS: Urine Blood Negative (Negative); Urine Ketones 2+ (40mg/dL) (Negative); Urine Nitrite Negative (Negative); Urine Protein Trace (Negative); Urine Specific Gravity 1.025 (1.005-1.030); Urine pH 7.5 (5.0-9.0)
[2022-10-15 22:07] LABS: Albumin 3.7 g/dL (3.2-5.2); Albumin/Globulin Ratio 0.8 (1-3); Calcium 9.1 mg/dL (8.6-10.3); Globulin 4.6 g/dL (2-4); Potassium 3.6 mmol/L (3.5-5.0); Total Bilirubin 1.8 mg/dL (0.2-1.0); Total Protein 8.3 g/dL (6.4-8.9); eGFR CKD-EPI 110.2 (>60)
[2022-10-15] MEDS ORDERED: Rocuronium 50 mg VIAL 10 mg/ml 5 ml VIAL (50 mg) ONE (22:09)
[2022-10-15] MEDS ORDERED: Succinylcholine 200 mg VIAL 20 mg/ml 10 ml VIAL (200 mg) ONE (22:09)
[2022-10-15] MEDS ORDERED: Morphine 10 MG/ML VIAL (1 ml) ONE (22:20)
[2022-10-15 22:29] LABS: Urine Bacteria Absent (Absent); Urine Red Blood Cell Absent (Absent); Urine White Blood Cell 1+(6-10/hpf) (Absent); Urine Yeast Present (Absent)
[2022-10-15] MEDS ORDERED: Succinylcholine 200 mg VIAL 20 mg/ml 10 ml VIAL (200 mg) IV ONE (22:39)
[2022-10-15] MEDS ORDERED: Etomidate 20 mg/10 ml 2 MG/ML 10 ml VIAL IV ONE (22:39)
[2022-10-15] MEDS ORDERED: Propofol 10 MG/ML 20 ML BTL ONE (22:43)
[2022-10-15] MEDS ORDERED: fentaNYL INFUSION 50 mcg/mL VL 2,500 MCG/50 ML VIAL IV SCH (23:00)
[2022-10-15] MEDS ORDERED: Propofol 10 MG/ML 20 ML BTL IV PUSH ONE (23:10)
[2022-10-15] MEDS ORDERED: Vancomycin 1,000 MG in NS 0.9% 250 ml 250 ML IVPB ONE (23:14)
[2022-10-15] MEDS ORDERED: Zosyn per Pharmacy NOTE FOLLOW UP SCH (23:45)
[2022-10-15] MEDS ORDERED: Vancomycin per Pharmacy 1 EA NOTE FOLLOW UP SCH (23:45)
[2022-10-16] MEDS: Enoxaparin 40 MG/0.4 ML SYR SUBCUT SCH ×2 (00:05→21:20)
[2022-10-16] MEDS: Pantoprazole VIAL 40 MG VIAL IV SCH ×2 (00:05→21:21)
[2022-10-16] MEDS: Propofol 10 mg/ml 100 ML BTL 100 ML IV SCH ×2 (00:12→18:21)
[2022-10-16] MEDS: Chlorhexidine MOUTHWASH 0.12% 15 ML UDC TOPICAL SCH ×6 (00:20→21:20)
[2022-10-16] MEDS ORDERED: ZOSYN 3.375 GM Q8H per EXTENDED INFUSION IV SCH (04:00)
[2022-10-16] MEDS: Acetaminophen IV 1 GM/100ML 1,000 MG/100 ML BAG IV PRN ×2 (04:54→17:06)
[2022-10-16] MEDS: ZOSYN 3.375 GM Q8H per EXTENDED INFUSION IV SCH ×3 (05:10→21:20)
[2022-10-16 08:03] LABS: ABS Basophils 0.1 10^3/ul (0-0.2); ABS Lymphocytes 1.5 10^3/ul (1.0-4.8); ABS Monocytes 1.3 10^3/ul (0-0.8); ABS Neutrophils 14.3 10^3/ul (1.5-7.7); Hematocrit 39 % (42-52); Hemoglobin 12.7 g/dL (14.0-18.0); Lymphocyte % 8.6 %; Mean Corpuscular HGB Conc 33 g/dL (31-36); Mean Corpuscular Hemoglobin 25 pg (27-31); Mean Corpuscular Volume 78 fL (80-94); Platelet Count 130 10^3/uL (150-450); Red Blood Count 5.01 10^6 /uL (4.18-5.48); Red Cell Distribution Width 14 % (10-15); White Blood Count 17.1 10^3/uL (3.5-10.8)
[2022-10-16] MEDS: Vancomycin 1,250 MG in NS 0.9% 250 ml 250 ML IVPB SCH ×2 (08:21→17:24)
[2022-10-16 08:43] LABS: Albumin 3.3 g/dL (3.2-5.2); Albumin/Globulin Ratio 0.8 (1-3); Calcium 8.6 mg/dL (8.6-10.3); Globulin 4.1 g/dL (2-4); Magnesium 1.4 mg/dL (1.9-2.7); Potassium 3.5 mmol/L (3.5-5.0); Total Bilirubin 2.1 mg/dL (0.2-1.0); Total Protein 7.4 g/dL (6.4-8.9); eGFR CKD-EPI 103.5 (>60)
[2022-10-16] MEDS ORDERED: Magnesium Sulfate IV 3 GM in NS 0.9% 100 ml BAG 100 ML IVPB ONE (08:51)
[2022-10-16] MEDS: KCL 20 MEQ/100 ML IVPREMIX 20 MEQ/100 ML BAG IV SCH ×2 (10:27→13:51)
[2022-10-16] MEDS: Lactated Ringers 1000 ml BAG 1,000 ML IV SCH (11:16)
[2022-10-16] MEDS ORDERED: Enalaprilat IV 1.25 mg/ml 1 ml VIAL (1.25 MG) IV ONE (23:29)
[2022-10-17] MEDS: Chlorhexidine MOUTHWASH 0.12% 15 ML UDC TOPICAL SCH ×7 (00:11→23:37)
[2022-10-17] MEDS: Vancomycin 1,250 MG in NS 0.9% 250 ml 250 ML IVPB SCH ×4 (00:11→23:33)
[2022-10-17] MEDS: fentaNYL 100 mcg/2 ml 50 MCG/ML VIAL IV SLOW PU PRN ×3 (01:41→15:46)
[2022-10-17] MEDS: Propofol 10 mg/ml 100 ML BTL 100 ML IV SCH ×3 (04:19→23:28)
[2022-10-17 04:40] LABS: ABS Lymphocytes 1.7 10^3/ul (1.0-4.8); ABS Neutrophils 10.9 10^3/ul (1.5-7.7); Eosinophil % 0.2 %; Hematocrit 37 % (42-52); Lymphocyte % 12.3 %; Mean Corpuscular HGB Conc 33 g/dL (31-36); Mean Corpuscular Hemoglobin 25 pg (27-31); Mean Corpuscular Volume 78 fL (80-94); Mean Platelet Volume 8.8 fL (7.4-10.4); Platelet Count 122 10^3/uL (150-450); Red Blood Count 4.75 10^6 /uL (4.18-5.48); Red Cell Distribution Width 13 % (10-15); White Blood Count 13.6 10^3/uL (3.5-10.8)
[2022-10-17] MEDS: ZOSYN 3.375 GM Q8H per EXTENDED INFUSION IV SCH ×3 (05:08→21:30)
[2022-10-17 05:14] LABS: Calcium 8.2 mg/dL (8.6-10.3); Magnesium 1.9 mg/dL (1.9-2.7); Phosphorus 2.2 mg/dL (2.5-5.0); Potassium 3.7 mmol/L (3.5-5.0); eGFR CKD-EPI 104.9 (>60)
[2022-10-17 05:33] LABS: Urine Appearance Clear; Urine Bilirubin Negative (Negative); Urine Blood Trace (Lysed) (Negative); Urine Color Yellow; Urine Glucose Negative (Negative); Urine Ketones Negative (Negative); Urine Nitrite Negative (Negative); Urine Protein Negative (Negative); Urine Specific Gravity 1.015 (1.005-1.030); Urine Urobilinogen 1.0 (Negative) (Negative)
[2022-10-17 05:46] LABS: Urine Bacteria Absent (Absent); Urine Red Blood Cell Trace(0-2/hpf) (Absent); Urine White Blood Cell Trace(0-5/hpf) (Absent)
[2022-10-17] MEDS: Enalaprilat IV 1.25 mg/ml 1 ml VIAL (1.25 MG) IV SCH ×4 (05:59→21:38)
[2022-10-17] MEDS: Lactated Ringers 1000 ml BAG 1,000 ML IV SCH ×4 (06:15→22:13)
[2022-10-17] MEDS ORDERED: Vancomycin Trough Check NOTE FOLLOW UP ONE (07:30)
[2022-10-17] MEDS ORDERED: Potassium Chloride LIQUID 20 MEQ/15 ML LIQUID PO ONE (09:05)
[2022-10-17] MEDS ORDERED: Magnesium Sulfate IV 1GM/100ML 1 GM/100 ML BAG IV ONE (09:05)
[2022-10-17 09:15] LABS: Urine Squamous Epithelial Cell Present (Absent); Urine Yeast Present (Absent)
[2022-10-17] MEDS ORDERED: fentaNYL 100 mcg/2 ml 50 MCG/ML VIAL ONE (15:03)
[2022-10-17] MEDS: Enoxaparin 40 MG/0.4 ML SYR SUBCUT SCH (21:33)
[2022-10-17] MEDS: Pantoprazole VIAL 40 MG VIAL IV SCH (21:35)
[2022-10-18] MEDS: fentaNYL 100 mcg/2 ml 50 MCG/ML VIAL IV SLOW PU PRN ×2 (01:31→06:02)
[2022-10-18] MEDS: Chlorhexidine MOUTHWASH 0.12% 15 ML UDC TOPICAL SCH ×3 (04:44→12:16)
[2022-10-18] MEDS: Enalaprilat IV 1.25 mg/ml 1 ml VIAL (1.25 MG) IV SCH ×2 (04:44→09:09)
[2022-10-18] MEDS: ZOSYN 3.375 GM Q8H per EXTENDED INFUSION IV SCH ×3 (04:55→20:40)
[2022-10-18 05:02] LABS: ABS Eosinophils 0.1 10^3/ul (0-0.6); ABS Lymphocytes 2.2 10^3/ul (1.0-4.8); ABS Monocytes 0.8 10^3/ul (0-0.8); ABS Neutrophils 6.9 10^3/ul (1.5-7.7); Eosinophil % 1.1 %; Hematocrit 36 % (42-52); Hemoglobin 11.7 g/dL (14.0-18.0); Mean Corpuscular HGB Conc 33 g/dL (31-36); Mean Corpuscular Hemoglobin 26 pg (27-31); Mean Corpuscular Volume 79 fL (80-94); Mean Platelet Volume 8.6 fL (7.4-10.4); Nucleated Red Blood Cells % 0.2; Platelet Count 136 10^3/uL (150-450); Red Blood Count 4.53 10^6 /uL (4.18-5.48); Red Cell Distribution Width 13 % (10-15); White Blood Count 10.1 10^3/uL (3.5-10.8)
[2022-10-18 05:45] LABS: Calcium 8.3 mg/dL (8.6-10.3); Magnesium 1.8 mg/dL (1.9-2.7); Phosphorus 2.6 mg/dL (2.5-5.0); Potassium 3.7 mmol/L (3.5-5.0); eGFR CKD-EPI 106.9 (>60)
[2022-10-18] MEDS: Lactated Ringers 1000 ml BAG 1,000 ML IV SCH (06:47)
[2022-10-18] MEDS: Vancomycin 1,250 MG in NS 0.9% 250 ml 250 ML IVPB SCH ×2 (07:47→15:46)
[2022-10-18] MEDS: Propofol 10 mg/ml 100 ML BTL 100 ML IV SCH (07:47)
[2022-10-18] MEDS ORDERED: hydrALAZINE 20 mg/ml 1 ML Vial IV IV SLOW PU ONE ×2 (08:06→15:13)
[2022-10-18] MEDS ORDERED: Magnesium Sulfate 2 gm BAG 2 GM/50 ML BAG IVPB ONE (09:17)
[2022-10-18] MEDS ORDERED: Potassium Chloride LIQUID 20 MEQ/15 ML LIQUID PO ONE (09:17)
[2022-10-18] MEDS ORDERED: Furosemide 40 mg/4 ml IV VIAL IV ONE (09:17)
[2022-10-18 11:10] LABS: PCO2 Arterial 32 mmHg (35-45); PO2 Arterial 91 mmHg (80-100)
[2022-10-18] MEDS ORDERED: Morphine 2 MG/ML SYRINGE ONE (12:22)
[2022-10-18 14:51] LABS: Potassium 3.8 mmol/L (3.5-5.0)
[2022-10-18 15:19] LABS: Calcium 8.7 mg/dL (8.6-10.3); eGFR CKD-EPI 104.4 (>60)
[2022-10-18] MEDS: KCL 20 MEQ/100 ML IVPREMIX 20 MEQ/100 ML BAG IV SCH ×2 (15:46→17:00)
[2022-10-18 17:12] LABS: PCO2 Arterial 27 mmHg (35-45); PO2 Arterial 76 mmHg (80-100)
[2022-10-18] MEDS ORDERED: LORazepam 2 mg VIAL 1 ml IV PUSH PRN (18:00)
[2022-10-18] MEDS ORDERED: Lorazepam PYXIS KEY PRN (18:00)
[2022-10-18] MEDS: Morphine 4 MG/ML VIAL (1 ml) IV PRN (18:27)
[2022-10-18] MEDS ORDERED: hydrALAZINE 20 mg/ml 1 ML Vial IV IV SLOW PU PRN (20:03)
[2022-10-18] MEDS: Pantoprazole VIAL 40 MG VIAL IV SCH (20:35)
[2022-10-18] MEDS: Enoxaparin 40 MG/0.4 ML SYR SUBCUT SCH (20:36)
[2022-10-19] MEDS: Vancomycin 1,250 MG in NS 0.9% 250 ml 250 ML IVPB SCH ×2 (00:47→08:27)
[2022-10-19] MEDS: ZOSYN 3.375 GM Q8H per EXTENDED INFUSION IV SCH ×3 (04:16→21:00)
[2022-10-19 04:22] LABS: ABS Basophils 0.1 10^3/ul (0-0.2); ABS Eosinophils 0.2 10^3/ul (0-0.6); ABS Lymphocytes 1.8 10^3/ul (1.0-4.8); ABS Monocytes 0.9 10^3/ul (0-0.8); ABS Neutrophils 5.1 10^3/ul (1.5-7.7); Eosinophil % 2.6 %; Hematocrit 36 % (42-52); Lymphocyte % 22.3 %; Mean Corpuscular HGB Conc 33 g/dL (31-36); Mean Corpuscular Hemoglobin 26 pg (27-31); Mean Corpuscular Volume 78 fL (80-94); Mean Platelet Volume 8.8 fL (7.4-10.4); Nucleated Red Blood Cells % 0.1; Platelet Count 161 10^3/uL (150-450); Red Blood Count 4.63 10^6 /uL (4.18-5.48); Red Cell Distribution Width 14 % (10-15)
[2022-10-19 04:59] LABS: Calcium 8.6 mg/dL (8.6-10.3); Magnesium 1.8 mg/dL (1.9-2.7); Phosphorus 3.3 mg/dL (2.5-5.0); Potassium 3.9 mmol/L (3.5-5.0); eGFR CKD-EPI 103.1 (>60)
[2022-10-19] MEDS ORDERED: Magnesium Sulfate 2 gm BAG 2 GM/50 ML BAG IVPB ONE (06:43)
[2022-10-19] MEDS ORDERED: Vancomycin Trough Check NOTE FOLLOW UP ONE (07:30)
[2022-10-19] MEDS ORDERED: Potassium Chloride LIQUID 20 MEQ/15 ML LIQUID PO ONE (07:39)
[2022-10-19] MEDS ORDERED: Bismuth Subsalicylate (BTL) 525 MG/30 ML (BULK BTL) PO PRN (20:18)
[2022-10-19] MEDS: Morphine 4 MG/ML VIAL (1 ml) IV PRN (20:48)
[2022-10-19] MEDS: Enoxaparin 40 MG/0.4 ML SYR SUBCUT SCH (20:48)
[2022-10-19] MEDS: Pantoprazole VIAL 40 MG VIAL IV SCH (20:48)
[2022-10-20] MEDS: Morphine 4 MG/ML VIAL (1 ml) IV PRN ×4 (01:51→22:33)
[2022-10-20] MEDS: ZOSYN 3.375 GM Q8H per EXTENDED INFUSION IV SCH ×4 (05:30→23:00)
[2022-10-20] MEDS ORDERED: Multivitamins ADULT w/MIN LIQ 15 ML UDC PO SCH (09:00)
[2022-10-20] MEDS ORDERED: Magnesium Sulfate 2 gm BAG 2 GM/50 ML BAG IVPB ONE (09:45)
[2022-10-20] MEDS: Multivitamins/Minerals TAB PO SCH (09:59)
[2022-10-20] MEDS ORDERED: Aspirin EC 81 mg TAB.EC (enteric coated) PO SCH (11:00)
[2022-10-20 13:40] LABS: ABS Eosinophils 0.4 10^3/ul (0-0.6); ABS Lymphocytes 1.8 10^3/ul (1.0-4.8); ABS Monocytes 0.9 10^3/ul (0-0.8); ABS Neutrophils 3.1 10^3/ul (1.5-7.7); Eosinophil % 6.4 %; Hematocrit 40 % (42-52); Hemoglobin 13.2 g/dL (14.0-18.0); Lymphocyte % 29.3 %; Mean Corpuscular HGB Conc 33 g/dL (31-36); Mean Corpuscular Hemoglobin 26 pg (27-31); Mean Corpuscular Volume 77 fL (80-94); Mean Platelet Volume 8.6 fL (7.4-10.4); Platelet Count 185 10^3/uL (150-450); Red Blood Count 5.15 10^6 /uL (4.18-5.48); Red Cell Distribution Width 13 % (10-15); White Blood Count 6.1 10^3/uL (3.5-10.8)
[2022-10-20 14:17] LABS: Magnesium 1.8 mg/dL (1.9-2.7); Potassium 3.9 mmol/L (3.5-5.0)
[2022-10-20 14:23] LABS: Phosphorus 2.9 mg/dL (2.5-5.0)
[2022-10-20] MEDS ORDERED: Lactated Ringers 1000 ml BAG 1,000 ML IV ONE (17:43)
[2022-10-20] MEDS: Enoxaparin 40 MG/0.4 ML SYR SUBCUT SCH (20:48)
[2022-10-20] MEDS: Pantoprazole VIAL 40 MG VIAL IV SCH (20:48)
[2022-10-20] MEDS: fentaNYL PATCH 25 MCG/HR 1 PATCH TRANSDERM SCH (20:52)
[2022-10-21 04:40] LABS: ABS Basophils 0.1 10^3/ul (0-0.2); ABS Eosinophils 0.6 10^3/ul (0-0.6); ABS Lymphocytes 2.6 10^3/ul (1.0-4.8); ABS Monocytes 0.8 10^3/ul (0-0.8); ABS Neutrophils 2.4 10^3/ul (1.5-7.7); Eosinophil % 9.2 %; Hematocrit 37 % (42-52); Lymphocyte % 39.9 %; Mean Corpuscular HGB Conc 33 g/dL (31-36); Mean Corpuscular Hemoglobin 26 pg (27-31); Mean Corpuscular Volume 79 fL (80-94); Mean Platelet Volume 8.8 fL (7.4-10.4); Nucleated Red Blood Cells % 0.1; Platelet Count 187 10^3/uL (150-450); Red Blood Count 4.64 10^6 /uL (4.18-5.48); Red Cell Distribution Width 13 % (10-15); White Blood Count 6.4 10^3/uL (3.5-10.8)
[2022-10-21 05:08] LABS: Calcium 8.9 mg/dL (8.6-10.3); Magnesium 1.9 mg/dL (1.9-2.7); Potassium 3.9 mmol/L (3.5-5.0)
[2022-10-21 05:13] LABS: eGFR CKD-EPI 99.4 (>60)
[2022-10-21] MEDS: ZOSYN 3.375 GM Q8H per EXTENDED INFUSION IV SCH ×3 (05:30→20:29)
[2022-10-21] MEDS: Morphine 4 MG/ML VIAL (1 ml) IV PRN ×2 (05:37→19:51)
[2022-10-21] MEDS: fentaNYL Patch Check Q Shift NOTE FOLLOW UP SCH ×2 (07:23→19:00)
[2022-10-21] MEDS: Multivitamins/Minerals TAB PO SCH (08:00)
[2022-10-21] MEDS ORDERED: Iron Sucrose 200 MG in NS 0.9% 100 ml BAG 100 ML IVPB ONE (17:52)
[2022-10-21] MEDS: Enoxaparin 40 MG/0.4 ML SYR SUBCUT SCH (19:51)
[2022-10-21] MEDS: Pantoprazole VIAL 40 MG VIAL IV SCH (19:51)
[2022-10-22] MEDS: Morphine 4 MG/ML VIAL (1 ml) IV PRN ×4 (00:37→14:45)
[2022-10-22 04:13] LABS: ABS Basophils 0.1 10^3/ul (0-0.2); ABS Eosinophils 0.4 10^3/ul (0-0.6); ABS Lymphocytes 2.7 10^3/ul (1.0-4.8); ABS Monocytes 0.5 10^3/ul (0-0.8); ABS Neutrophils 1.3 10^3/ul (1.5-7.7); Eosinophil % 8.8 %; Hematocrit 39 % (42-52); Hemoglobin 12.5 g/dL (14.0-18.0); Lymphocyte % 53.3 %; Mean Corpuscular HGB Conc 32 g/dL (31-36); Mean Corpuscular Hemoglobin 26 pg (27-31); Mean Corpuscular Volume 79 fL (80-94); Mean Platelet Volume 8.7 fL (7.4-10.4); Nucleated Red Blood Cells % 0.3; Platelet Count 217 10^3/uL (150-450); Red Blood Count 4.91 10^6 /uL (4.18-5.48); Red Cell Distribution Width 13 % (10-15)
[2022-10-22] MEDS: ZOSYN 3.375 GM Q8H per EXTENDED INFUSION IV SCH ×3 (04:35→20:45)
[2022-10-22 04:46] LABS: Blood Urea Nitrogen 18 mg/dL (6-24); CO2 Carbon Dioxide 27 mmol/L (22-32); Chloride 105 mmol/L (101-111); Glucose 118 mg/dL (70-100); Magnesium 1.9 mg/dL (1.9-2.7); Sodium 140 mmol/L (135-145); eGFR CKD-EPI 96.3 (>60)
[2022-10-22 04:59] LABS: Anion Gap 8 mmol/L (2-11)
[2022-10-22] MEDS: fentaNYL Patch Check Q Shift NOTE FOLLOW UP SCH ×2 (07:09→19:19)
[2022-10-22 09:27] LABS: Potassium Redraw 3.8 mmol/L (3.5-5.0)
[2022-10-22] MEDS: Multivitamins/Minerals TAB PO SCH (10:29)
[2022-10-22] MEDS ORDERED: Morphine 4 MG/ML VIAL (1 ml) IV PRN (17:16)
[2022-10-22] MEDS: Enoxaparin 40 MG/0.4 ML SYR SUBCUT SCH (20:46)
[2022-10-22] MEDS: Pantoprazole VIAL 40 MG VIAL IV SCH (20:47)
[2022-10-22] MEDS: Morphine 2 MG/ML SYRINGE IV PRN (20:56)
[2022-10-23] MEDS: Morphine 2 MG/ML SYRINGE IV PRN ×2 (03:01→09:23)
[2022-10-23] MEDS: ZOSYN 3.375 GM Q8H per EXTENDED INFUSION IV SCH ×3 (04:56→20:26)
[2022-10-23] MEDS: fentaNYL Patch Check Q Shift NOTE FOLLOW UP SCH ×2 (07:11→19:02)
[2022-10-23] MEDS: Multivitamins/Minerals TAB PO SCH (08:05)
[2022-10-23] MEDS: Enoxaparin 40 MG/0.4 ML SYR SUBCUT SCH (20:26)
[2022-10-23] MEDS: Pantoprazole VIAL 40 MG VIAL IV SCH (20:26)
[2022-10-23] MEDS: fentaNYL PATCH 25 MCG/HR 1 PATCH TRANSDERM SCH (20:27)
[2022-10-24] MEDS: ZOSYN 3.375 GM Q8H per EXTENDED INFUSION IV SCH ×3 (04:26→20:24)
[2022-10-24] MEDS: fentaNYL Patch Check Q Shift NOTE FOLLOW UP SCH ×2 (07:21→18:41)
[2022-10-24] MEDS: Multivitamins/Minerals TAB PO SCH (09:33)
[2022-10-24 10:23] LABS: ActiTest Interpretation no activity; Alanine Aminotransferase (ALT) 26 U/L (7-55); Alpha-2-Macroglobulin, S 385 mg/dL (100 - 280); Apolipoprotein A1, S 83 mg/dL (>=120); BioPredictive Serial Number 4156364; FibroTest Interpretation severe fibrosis; Gamma Glutamyltransferase GGT 73 U/L (8 - 61); Haptoglobin, S 197 mg/dL (30 - 200)
[2022-10-24 12:01] LABS: ALT 21 U/L (7-52); Albumin 3.4 g/dL (3.2-5.2); Albumin/Globulin Ratio 0.8 (1-3); Alkaline Phosphatase 89 U/L (35-149); Globulin 4.4 g/dL (2-4); Total Protein 7.8 g/dL (6.4-8.9)
[2022-10-24 12:20] LABS: Direct Bilirubin Redraw 0.3 mg/dL (0.03-0.18)
[2022-10-24] MEDS ORDERED: Albuterol HFA INHALER 8 gm MDI INH PRN (16:59)
[2022-10-24] MEDS: Pantoprazole VIAL 40 MG VIAL IV SCH (20:29)
[2022-10-24] MEDS: Enoxaparin 40 MG/0.4 ML SYR SUBCUT SCH (20:30)
[2022-10-25] MEDS: ZOSYN 3.375 GM Q8H per EXTENDED INFUSION IV SCH ×3 (04:45→21:31)
[2022-10-25] MEDS: fentaNYL Patch Check Q Shift NOTE FOLLOW UP SCH ×2 (06:55→19:10)
[2022-10-25] MEDS: Multivitamins/Minerals TAB PO SCH (08:52)
[2022-10-25 08:55] LABS: ABS Eosinophils 0.6 10^3/ul (0-0.6); ABS Lymphocytes 3.5 10^3/ul (1.0-4.8); ABS Monocytes 0.7 10^3/ul (0-0.8); ABS Neutrophils 1.7 10^3/ul (1.5-7.7); Eosinophil % 8.5 %; Hematocrit 36 % (42-52); Hemoglobin 11.9 g/dL (14.0-18.0); Mean Corpuscular HGB Conc 33 g/dL (31-36); Mean Corpuscular Hemoglobin 26 pg (27-31); Mean Corpuscular Volume 78 fL (80-94); Nucleated Red Blood Cells % 0.1; Platelet Count 265 10^3/uL (150-450); Red Cell Distribution Width 13 % (10-15); White Blood Count 6.5 10^3/uL (3.5-10.8)
[2022-10-25 09:22] LABS: Calcium 9.2 mg/dL (8.6-10.3); Magnesium 1.6 mg/dL (1.9-2.7); Potassium 4.3 mmol/L (3.5-5.0); eGFR CKD-EPI 99.4 (>60)
[2022-10-25] MEDS: Pantoprazole VIAL 40 MG VIAL IV SCH (21:25)
[2022-10-25] MEDS: Enoxaparin 40 MG/0.4 ML SYR SUBCUT SCH (21:27)
[2022-10-26] MEDS: ZOSYN 3.375 GM Q8H per EXTENDED INFUSION IV SCH ×3 (05:02→20:06)
[2022-10-26] MEDS: fentaNYL Patch Check Q Shift NOTE FOLLOW UP SCH ×2 (06:43→18:58)
[2022-10-26 06:55] LABS: ABS Basophils 0.1 10^3/ul (0-0.2); ABS Eosinophils 0.5 10^3/ul (0-0.6); ABS Lymphocytes 3.2 10^3/ul (1.0-4.8); ABS Monocytes 0.6 10^3/ul (0-0.8); ABS Neutrophils 1.6 10^3/ul (1.5-7.7); Eosinophil % 9.2 %; Hematocrit 34 % (42-52); Hemoglobin 11.3 g/dL (14.0-18.0); Lymphocyte % 53.4 %; Mean Corpuscular HGB Conc 33 g/dL (31-36); Mean Corpuscular Hemoglobin 26 pg (27-31); Mean Corpuscular Volume 78 fL (80-94); Platelet Count 252 10^3/uL (150-450); Red Cell Distribution Width 14 % (10-15)
[2022-10-26 07:09] LABS: Calcium 9.1 mg/dL (8.6-10.3); Magnesium 1.6 mg/dL (1.9-2.7); Potassium 4.3 mmol/L (3.5-5.0); eGFR CKD-EPI 99.8 (>60)
[2022-10-26] MEDS: Multivitamins/Minerals TAB PO SCH (08:15)
[2022-10-26] MEDS: fentaNYL PATCH 25 MCG/HR 1 PATCH TRANSDERM SCH (19:59)
[2022-10-26] MEDS: Pantoprazole VIAL 40 MG VIAL IV SCH (20:02)
[2022-10-26] MEDS: Enoxaparin 40 MG/0.4 ML SYR SUBCUT SCH (20:05)
[2022-10-27] MEDS: ZOSYN 3.375 GM Q8H per EXTENDED INFUSION IV SCH (05:05)
[2022-10-27] MEDS: fentaNYL Patch Check Q Shift NOTE FOLLOW UP SCH (07:14)
[2022-10-27] MEDS: Multivitamins/Minerals TAB PO SCH (08:37)
[2022-10-27 11:17] VITALS: BP 124/78
[2022-10-27] MEDS ORDERED: Magnesium Sulfate 2 gm BAG 2 GM/50 ML BAG IVPB ONE (11:34)
== END 2022-10-27 13:20 | disposition swing bed (61) | DRG 917 ==
LOC: ED 13:23 → SUATTDRO 23:08 → EDHOLD 23:08 → ICU 10-16 01:39 → MED 10-22 04:49
PROVIDERS: ADMIT Internal Medicine; ATTEND Internal Medicine

== ENCOUNTER 2022-10-27 13:35 | Inpatient (IN) ==
[2022-10-27] MEDS ORDERED: Albuterol HFA INHALER 8 gm MDI INH PRN (14:56)
[2022-10-27] MEDS ORDERED: Bismuth Subsalicylate (BTL) 525 MG/30 ML (BULK BTL) PO PRN (14:57)
[2022-10-27] MEDS: Enoxaparin 40 MG/0.4 ML SYR SUBCUT SCH (16:07)
[2022-10-27] MEDS: fentaNYL Patch Check Q Shift NOTE FOLLOW UP SCH (19:25)
[2022-10-28] MEDS: fentaNYL Patch Check Q Shift NOTE FOLLOW UP SCH ×2 (07:19→19:01)
[2022-10-28] MEDS: Multivitamins/Minerals TAB PO SCH (09:11)
[2022-10-28] MEDS: Enoxaparin 40 MG/0.4 ML SYR SUBCUT SCH (14:35)
[2022-10-29] MEDS: fentaNYL Patch Check Q Shift NOTE FOLLOW UP SCH ×2 (07:42→19:25)
[2022-10-29] MEDS: Multivitamins/Minerals TAB PO SCH (09:25)
[2022-10-29] MEDS: Enoxaparin 40 MG/0.4 ML SYR SUBCUT SCH (13:51)
[2022-10-29] MEDS: fentaNYL PATCH 25 MCG/HR 1 PATCH TRANSDERM SCH (19:26)
[2022-10-30] MEDS: fentaNYL Patch Check Q Shift NOTE FOLLOW UP SCH ×2 (07:08→18:53)
[2022-10-30] MEDS: Multivitamins/Minerals TAB PO SCH (09:06)
[2022-10-30] MEDS: Enoxaparin 40 MG/0.4 ML SYR SUBCUT SCH (17:14)
[2022-10-31] MEDS: fentaNYL Patch Check Q Shift NOTE FOLLOW UP SCH ×2 (07:47→19:08)
[2022-10-31] MEDS: Multivitamins/Minerals TAB PO SCH (07:52)
[2022-10-31] MEDS: Enoxaparin 40 MG/0.4 ML SYR SUBCUT SCH (15:13)
[2022-11-01] MEDS: fentaNYL Patch Check Q Shift NOTE FOLLOW UP SCH ×2 (07:17→19:31)
[2022-11-01] MEDS: Multivitamins/Minerals TAB PO SCH (08:19)
[2022-11-01] MEDS: Enoxaparin 40 MG/0.4 ML SYR SUBCUT SCH (15:11)
[2022-11-01] MEDS: fentaNYL PATCH 25 MCG/HR 1 PATCH TRANSDERM SCH (20:40)
[2022-11-02] MEDS: fentaNYL Patch Check Q Shift NOTE FOLLOW UP SCH ×2 (06:53→19:50)
[2022-11-02] MEDS: Multivitamins/Minerals TAB PO SCH (08:01)
[2022-11-02] MEDS: Enoxaparin 40 MG/0.4 ML SYR SUBCUT SCH (16:24)
[2022-11-03] MEDS: fentaNYL Patch Check Q Shift NOTE FOLLOW UP SCH ×2 (07:13→19:10)
[2022-11-03] MEDS: Multivitamins/Minerals TAB PO SCH (07:19)
[2022-11-03] MEDS: Enoxaparin 40 MG/0.4 ML SYR SUBCUT SCH (15:23)
[2022-11-04] MEDS: fentaNYL Patch Check Q Shift NOTE FOLLOW UP SCH (07:11)
[2022-11-04 07:24] VITALS: BP 103/66
[2022-11-04] MEDS: Multivitamins/Minerals TAB PO SCH (10:04)
[2022-11-04] MEDS ORDERED: fentaNYL PATCH 25 MCG/HR 1 PATCH TRANSDERM ONE (15:17)
[2022-11-04] MEDS: Enoxaparin 40 MG/0.4 ML SYR SUBCUT SCH (15:53)
== END 2022-11-04 16:40 | disposition home or self-care (01) | DRG 93 ==
LOC: SUATTDRO 13:35 → MED 13:35
PROVIDERS: ADMIT Internal Medicine; ATTEND Hospitalist

== ENCOUNTER 2024-01-27 15:51 | Inpatient (IN) ==
[2024-01-27 17:58] LABS: ABS Eosinophils 0.1 10^3/uL (0.0-0.5); ABS Lymphocytes 0.9 10^3/uL (1.0-4.8); ABS Monocytes 0.4 10^3/uL (0.0-1.1); ABS Neutrophils 10.7 10^3/uL (1.5-7.6); ABS Nucleated RBC 0.01 10^3/ul; Eosinophil % 0.6 %; Hematocrit 41.5 % (38-53); Hemoglobin 13.7 g/dL (13.2-16.3); Lymphocyte % 7.1 %; Mean Corpuscular Hemoglobin 26.7 pg (27-33); Mean Corpuscular Hgb Conc 33.1 g/dL (31-36); Mean Corpuscular Volume 80.7 fL (80-97); Mean Platelet Volume 9.2 fL (7.5-11.2); Nucleated Red Blood Cells % 0.1 %/100WBC (0.0-0.8); Platelet Count 120 10^3/uL (150-450); Red Blood Count 5.14 10^6/uL (4.06-5.63); Red Cell Distribution Width 13.5 % (12-17)
[2024-01-27 18:24] LABS: High Sens Troponin Baseline 461 pg/mL (<20)
[2024-01-27 18:42] LABS: ALT 20 U/L (7-52); Albumin 3.8 g/dL (3.2-5.2); Albumin/Globulin Ratio 0.9 (1-3); Alcohol, S < 13 mg/dL (<13); Alkaline Phosphatase 79 U/L (35-149); Blood Urea Nitrogen 9 mg/dL (6-24); C Reactive Protein 2.45 mg/L (<8.01); CO2 Carbon Dioxide 27 mmol/L (22-32); Calcium 9.3 mg/dL (8.6-10.3); Chloride 98 mmol/L (101-111); Creatinine, Serum 0.74 mg/dL (0.67-1.17); Globulin 4.2 g/dL (2-4); Glucose 107 mg/dL (70-100); Magnesium 1.5 mg/dL (1.9-2.7); Sodium 134 mmol/L (135-145); Total Bilirubin 1.3 mg/dL (0.2-1.0); eGFR CKD-EPI 101.2 (>60)
[2024-01-27 18:43] LABS: Anion Gap 9 mmol/L (2-16)
[2024-01-27 19:08] LABS: Potassium Redraw 4.1 mmol/L (3.5-5.0)
[2024-01-27 20:50] LABS: Urine Appearance Clear; Urine Bilirubin Negative (Negative); Urine Blood Negative (Negative); Urine Color Yellow; Urine Glucose Negative (Negative); Urine Ketones Negative (Negative); Urine Nitrite Negative (Negative); Urine Protein Negative (Negative); Urine Specific Gravity 1.013 (1.002-1.030); Urine Urobilinogen 1+ (Negative); Urine pH 7.5 (5.0-8.0)
[2024-01-27 21:04] LABS: Budding Yeast Present /HPF (Absent); Urine Bacteria Absent /HPF (Absent); Urine Red Blood Cell Trace(0-2/hpf) /HPF (0-Trace); Urine Squamous Epithelial Cell Present /HPF (Absent); Urine White Blood Cell 3+(>20/hpf) /HPF (0-Trace)
[2024-01-27 21:06] LABS: Urine Benzodiazepine Screen Presumptive Positive (None Detect); Urine Cannabinoids Screen None Detected (None Detect); Urine Opiates Screen None Detected (None Detect)
[2024-01-27 21:20] LABS: High Sensitivity Troponin 3 Hr 585 pg/mL (<20)
[2024-01-27] MEDS: Iodixanol (CONTRAST) 320 MG/ML 100 ML SDV IV ONE (21:22)
[2024-01-27 22:26] LABS: ABS Basophils 0.1 10^3/uL (0.0-0.1); ABS Eosinophils 0.1 10^3/uL (0.0-0.5); ABS Monocytes 0.8 10^3/uL (0.0-1.1); ABS Neutrophils 11.4 10^3/uL (1.5-7.6); ABS Nucleated RBC 0.02 10^3/ul; Eosinophil % 0.6 %; Hematocrit 40.7 % (38-53); Hemoglobin 13.5 g/dL (13.2-16.3); Mean Corpuscular Hemoglobin 26.6 pg (27-33); Mean Corpuscular Hgb Conc 33.2 g/dL (31-36); Mean Platelet Volume 9.1 fL (7.5-11.2); Nucleated Red Blood Cells % 0.2 %/100WBC (0.0-0.8); Platelet Count 133 10^3/uL (150-450); Red Blood Count 5.09 10^6/uL (4.06-5.63); Red Cell Distribution Width 13.3 % (12-17); White Blood Count 14.4 10^3/uL (3.6-10.2)
[2024-01-27] MEDS: Heparin DRIP 25,000 UNITS BAG 25,000 UNITS/250 ML BAG IV SCH (22:31)
[2024-01-27] MEDS: Heparin 5000 UNITS/ML 1 mL VIAL IV SCH (22:31)
[2024-01-27 22:33] LABS: INR 1.36 (0.83-1.13)
[2024-01-27 23:05] LABS: Creatinine, Serum 0.75 mg/dL (0.67-1.17); eGFR CKD-EPI 100.8 (>60)
[2024-01-28 01:20] LABS: HDL Cholesterol 53.1 mg/dL
[2024-01-28] MEDS: Magnesium Sulfate 2 gm BAG 2 GM/50 ML BAG IVPB ONE (02:09)
[2024-01-28] MEDS: Magnesium Sulfate IV 1GM/100ML 1 GM/100 ML BAG IV ONE (03:30)
[2024-01-28 04:42] LABS: ABS Basophils 0.1 10^3/uL (0.0-0.1); ABS Eosinophils 0.2 10^3/uL (0.0-0.5); ABS Lymphocytes 2.7 10^3/uL (1.0-4.8); ABS Monocytes 0.9 10^3/uL (0.0-1.1); ABS Neutrophils 7.4 10^3/uL (1.5-7.6); ABS Nucleated RBC 0.03 10^3/ul; Eosinophil % 1.6 %; Hematocrit 39.4 % (38-53); Hemoglobin 13.3 g/dL (13.2-16.3); Lymphocyte % 23.9 %; Mean Corpuscular Hemoglobin 27.2 pg (27-33); Mean Corpuscular Hgb Conc 33.8 g/dL (31-36); Mean Corpuscular Volume 80.5 fL (80-97); Mean Platelet Volume 9.2 fL (7.5-11.2); Nucleated Red Blood Cells % 0.2 %/100WBC (0.0-0.8); Platelet Count 134 10^3/uL (150-450); Red Cell Distribution Width 13.2 % (12-17); White Blood Count 11.3 10^3/uL (3.6-10.2)
[2024-01-28] MEDS ORDERED: Lidocaine PATCH 5% PATCH TRANSDERM PRN (04:45)
[2024-01-28 05:12] LABS: Calcium 9.2 mg/dL (8.6-10.3); Creatinine, Serum 0.71 mg/dL (0.67-1.17); Magnesium 2.6 mg/dL (1.9-2.7); Phosphorus 3.6 mg/dL (2.5-5.0); Potassium 3.7 mmol/L (3.5-5.0); eGFR CKD-EPI 102.5 (>60)
[2024-01-28 05:28] LABS: TSH Ultra Thyroid Stim Horm 0.46 mcIU/mL (0.34-5.60)
[2024-01-28 05:37] LABS: Folate 13.69 ng/mL (5.90-24.80)
[2024-01-28] MEDS: fentaNYL PATCH 25 MCG/HR 1 PATCH TRANSDERM SCH (16:40)
[2024-01-28] MEDS: Aspirin EC 81 mg TAB.EC (enteric coated) PO SCH (18:30)
[2024-01-28] MEDS: fentaNYL Patch Check Q Shift NOTE FOLLOW UP SCH (19:17)
[2024-01-29 08:27] LABS: Hematocrit 40.8 % (38-53); Hemoglobin 13.7 g/dL (13.2-16.3); Mean Corpuscular Hgb Conc 33.6 g/dL (31-36); Mean Corpuscular Volume 80.3 fL (80-97); Red Blood Count 5.08 10^6/uL (4.06-5.63); Red Cell Distribution Width 13.5 % (12-17); White Blood Count 6.3 10^3/uL (3.6-10.2)
[2024-01-29 08:52] LABS: Calcium 9.3 mg/dL (8.6-10.3); Creatinine, Serum 0.77 mg/dL (0.67-1.17); Magnesium 1.8 mg/dL (1.9-2.7); Potassium 4.3 mmol/L (3.5-5.0)
[2024-01-29 09:16] LABS: ABS Basophils 0.1 10^3/uL (0.0-0.1); ABS Eosinophils 0.2 10^3/uL (0.0-0.5); ABS Lymphocytes 2.1 10^3/uL (1.0-4.8); ABS Monocytes 0.7 10^3/uL (0.0-1.1); ABS Neutrophils 3.2 10^3/uL (1.5-7.6); ABS Nucleated RBC 0.03 10^3/ul; Eosinophil % 3.9 %; Lymphocyte % 32.6 %; Mean Platelet Volume 9.2 fL (7.5-11.2); Nucleated Red Blood Cells % 0.4 %/100WBC (0.0-0.8); Platelet Count 134 10^3/uL (150-450)
[2024-01-29] MEDS: Magnesium Sulfate 2 gm BAG 2 GM/50 ML BAG IVPB ONE (10:36)
[2024-01-29] MEDS ORDERED: Sulfur Hexaflouride MICROSPHR 25 MG VIAL ONE (11:50)
[2024-01-29] MEDS ORDERED: Ondansetron 4 mg VIAL 2 MG/ML 2 ml VIAL IV PRN (14:32)
[2024-01-30 06:26] LABS: ABS Basophils 0.1 10^3/uL (0.0-0.1); ABS Eosinophils 0.2 10^3/uL (0.0-0.5); ABS Neutrophils 4.4 10^3/uL (1.5-7.6); ABS Nucleated RBC 0.03 10^3/ul; Eosinophil % 2.8 %; Hematocrit 39.3 % (38-53); Hemoglobin 13.2 g/dL (13.2-16.3); Lymphocyte % 34.5 %; Mean Corpuscular Hgb Conc 33.5 g/dL (31-36); Mean Corpuscular Volume 80.5 fL (80-97); Mean Platelet Volume 8.9 fL (7.5-11.2); Nucleated Red Blood Cells % 0.3 %/100WBC (0.0-0.8); Platelet Count 139 10^3/uL (150-450); Red Blood Count 4.88 10^6/uL (4.06-5.63); Red Cell Distribution Width 13.1 % (12-17); White Blood Count 8.8 10^3/uL (3.6-10.2)
[2024-01-30 06:50] LABS: Calcium 8.9 mg/dL (8.6-10.3); Creatinine, Serum 0.85 mg/dL (0.67-1.17); Magnesium 1.7 mg/dL (1.9-2.7); Potassium 4.3 mmol/L (3.5-5.0)
[2024-01-30] MEDS: Magnesium Sulf 4 GM/100 ML IV 4,000 MG/100 ML BAG IVPB ONE (08:40)
[2024-01-30] MEDS: fentaNYL PATCH 50 MCG/HR 1 PATCH TRANSDERM SCH (10:14)
[2024-01-30] MEDS: NS 0.9% 1000 ml BAG 1,000 ML IV SCH (12:00)
[2024-01-30] MEDS ORDERED: Naloxone 0.4 mg VIAL 0.4 mg/ml 1 ml VIAL IV PUSH PRN (12:16)
[2024-01-30] MEDS ORDERED: Flumazenil 0.5 mg/5 ml 0.1 MG/ML 5 ml VIAL IV PRN (12:16)
[2024-01-30] MEDS ORDERED: niCARdipine 0.1MG/ML IVPREMIX 20 MG/200 ML BAG IV ONE (12:43)
[2024-01-30] MEDS ORDERED: nitroGLYCERIN DRIP 25,000 MCG/250 ML BTL ONE (12:43)
[2024-01-30] MEDS ORDERED: Iohexol 350 (CONTRAST) 200 ML MDV IV ONE (12:43)
[2024-01-30] MEDS ORDERED: Heparin 2 UNITS/ML 1000 mls 2,000 ML IV ONE (12:43)
[2024-01-30] MEDS ORDERED: Lidocaine 1% MPF 5 ML VIAL ONE (12:43)
[2024-01-30] MEDS ORDERED: Heparin 1,000 UNIT/ML 10 ml (10,000 UNITS) CATHLAB/DIALYSIS ONE (12:58)
[2024-01-30] MEDS ORDERED: fentaNYL 100 mcg/2 ml 50 MCG/ML VIAL ONE ×2 (12:58→13:29)
[2024-01-30] MEDS ORDERED: Midazolam 5 mg/5 ml VIAL 1 mg/ml 5 ml VIAL (5 mg) ONE (12:58)
[2024-01-30] MEDS: Midazolam 10 mg/10 ml VIAL 1 mg/ml 10 ml VIAL (10 mg) IV SLOW PU ONE (15:07)
[2024-01-30] MEDS: fentaNYL 100 mcg/2 ml 50 MCG/ML VIAL IV SLOW PU ONE (15:07)
[2024-01-30 18:11] VITALS: BP 112/64
[2024-01-30] MEDS ORDERED: fentaNYL Patch Check Q Shift NOTE SCH (19:00)
== END 2024-01-30 18:45 | disposition home or self-care (01) | DRG 281 ==
LOC: EDHOLD 15:51 → ED 15:51 → SUATTDRO 23:38 → MEDTELE 01-28 15:18
PROVIDERS: ADMIT Internal Medicine; ATTEND Student in an Organized Health Care Education/Training Program

== ENCOUNTER 2024-02-21 03:49 | Observation (INO) ==
[2024-02-21] MEDS: Ondansetron 4 mg VIAL 2 MG/ML 2 ml VIAL IV ONE (04:45)
[2024-02-21] MEDS: Lactated Ringers 1000 ml BAG 1,000 ML IV ONE (04:45)
[2024-02-21] MEDS: Acetaminophen IV 1 GM/100ML 1,000 MG/100 ML BAG IV ONE (04:45)
[2024-02-21 04:51] LABS: Venous Bicarbonate HCO3 26.8 mmol/L (24-28)
[2024-02-21 04:56] LABS: ABS Lymphocytes 0.6 10^3/uL (1.0-4.8); ABS Neutrophils 4.3 10^3/uL (1.5-7.6); ABS Nucleated RBC 0.02 10^3/ul; Eosinophil % 0.4 %; Hematocrit 41.5 % (38-53); Hemoglobin 13.8 g/dL (13.2-16.3); Lymphocyte % 12.5 %; Mean Corpuscular Hemoglobin 26.8 pg (27-33); Mean Corpuscular Hgb Conc 33.2 g/dL (31-36); Mean Corpuscular Volume 80.7 fL (80-97); Nucleated Red Blood Cells % 0.4 %/100WBC (0.0-0.8); Platelet Count 124 10^3/uL (150-450); Red Blood Count 5.14 10^6/uL (4.06-5.63); Red Cell Distribution Width 13.1 % (12-17)
[2024-02-21 04:59] LABS: Urine Appearance Clear; Urine Bilirubin Negative (Negative); Urine Blood 1+ (Negative); Urine Color Yellow; Urine Glucose Negative (Negative); Urine Ketones Negative (Negative); Urine Nitrite Negative (Negative); Urine Protein 1+ (>=30 mg/dL) (Negative); Urine Specific Gravity 1.019 (1.002-1.030); Urine Urobilinogen 2+ (Negative)
[2024-02-21 05:18] LABS: Budding Yeast Present /HPF (Absent); Urine Bacteria Absent /HPF (Absent); Urine Red Blood Cell 1+(3-5/hpf) /HPF (0-Trace); Urine White Blood Cell 3+(>20/hpf) /HPF (0-Trace)
[2024-02-21 05:19] LABS: High Sens Troponin Baseline 10 pg/mL (<20); INR 1.25 (0.83-1.13)
[2024-02-21 05:22] LABS: Urine Benzodiazepine Screen None Detected (None Detect); Urine Cannabinoids Screen None Detected (None Detect); Urine Opiates Screen Presumptive Positive (None Detect)
[2024-02-21 05:42] LABS: ALT 33 U/L (7-52); AST 61 U/L (13-39); Albumin 3.8 g/dL (3.2-5.2); Albumin/Globulin Ratio 0.9 (1-3); Alcohol, S < 13 mg/dL (<13); Alkaline Phosphatase 151 U/L (35-149); Anion Gap 14 mmol/L (2-16); Blood Urea Nitrogen 17 mg/dL (6-24); C Reactive Protein 1.33 mg/L (<8.01); CO2 Carbon Dioxide 27 mmol/L (22-32); Calcium 9.8 mg/dL (8.6-10.3); Chloride 102 mmol/L (101-111); Creatinine, Serum 0.99 mg/dL (0.67-1.17); Globulin 4.2 g/dL (2-4); Glucose 124 mg/dL (70-100); Lipase 55 U/L (11.0-82.0); Sodium 143 mmol/L (135-145); Total Bilirubin 1.3 mg/dL (0.2-1.0); eGFR CKD-EPI 85.1 (>60)
[2024-02-21 06:29] LABS: High Sensitivity Troponin 1 Hr 6 pg/mL (<20)
[2024-02-21] MEDS: cefTRIAXone 1 gm/50 mL D5W 1 GM/50 ML BAG IV ONE (06:41)
[2024-02-21] MEDS: Iodixanol (CONTRAST) 320 MG/ML 100 ML SDV IV ONE (07:44)
[2024-02-21] MEDS ORDERED: NS 0.9% 1000 ml BAG 1,000 ML IV SCH (11:00)
[2024-02-21] MEDS: Azithromycin 500 mg/250 ml NS 500 MG/250 ML BAG IVPB SCH (11:46)
[2024-02-21] MEDS: Enoxaparin 40 MG/0.4 ML SYR SUBCUT SCH (11:46)
[2024-02-21] MEDS: NORMOSOL R PH IV ONE (11:46)
[2024-02-21] MEDS: NS 0.9% 1000 ml BAG 1,000 ML IV SCH (11:47)
[2024-02-21] MEDS ORDERED: Albuterol HFA INHALER 8 gm MDI INH PRN (13:12)
[2024-02-22] MEDS: cefTRIAXone 1 gm/50 mL D5W 1 GM/50 ML BAG IV SCH (05:45)
[2024-02-22 07:18] LABS: Hematocrit 33.4 % (38-53); Hemoglobin 10.8 g/dL (13.2-16.3); Mean Corpuscular Hemoglobin 26.2 pg (27-33); Mean Corpuscular Hgb Conc 32.3 g/dL (31-36); Mean Corpuscular Volume 81.2 fL (80-97); Mean Platelet Volume 10.1 fL (7.5-11.2); Platelet Count 108 10^3/uL (150-450); Red Blood Count 4.11 10^6/uL (4.06-5.63); Red Cell Distribution Width 13.4 % (12-17); White Blood Count 26.1 10^3/uL (3.6-10.2)
[2024-02-22 07:48] LABS: ABS Eosinophils 0.1 10^3/uL (0.0-0.5); ABS Lymphocytes 2.3 10^3/uL (1.0-4.8); ABS Monocytes 1.9 10^3/uL (0.0-1.1); ABS Neutrophils 21.7 10^3/uL (1.5-7.6); Calcium 7.9 mg/dL (8.6-10.3); Creatinine, Serum 0.78 mg/dL (0.67-1.17); Eosinophil % 0.4 %; Lymphocyte % 8.8 %; Magnesium 1.6 mg/dL (1.9-2.7); Potassium 3.8 mmol/L (3.5-5.0); eGFR CKD-EPI 99.6 (>60)
[2024-02-22] MEDS: Multivitamins/Minerals TAB PO SCH (08:56)
[2024-02-22] MEDS: Magnesium Sulf 4 GM/100 ML IV 4,000 MG/100 ML BAG IVPB ONE (10:18)
[2024-02-22 14:18] VITALS: BP 135/73
[2024-02-22 18:56] LABS: Adenovirus F40/41 Negative (Negative); Astrovirus Negative (Negative); Cryptosporidium species Negative (Negative); Cyclospora cayetanensis Negative (Negative); Entamoeba histolytica Negative (Negative); Enteroaggregative E.coli(EAEC) Negative (Negative); Enteropathogenic Ecoli(EPEC) Negative (Negative); Enterotoxigenic Ecoli(ETEC) Negative (Negative); Norovirus GI/GII Negative (Negative); Plesiomonas shigelloides Negative (Negative); Salmonella species Negative (Negative); Sapovirus Negative (Negative); Shiga toxin producing E. coli Negative (Negative); Shigella/Enteroinvasive E.coli Negative (Negative); Specimen Source STOOL; Vibrio cholerae Negative (Negative); Yersinia species Negative (Negative)
== END 2024-02-22 16:54 | disposition home or self-care (01) ==
LOC: EDHOLD 03:49 → ED 03:49 → SUATTDRO 10:50 → MEDTELE 12:54
PROVIDERS: ADMIT Hospitalist; ATTEND Internal Medicine